=== PATIENT | female | born 1960 | race Caucasian/White ===

== ENCOUNTER 2018-03-03 07:48 | Outpatient (CLI) | payer BC | END 2018-03-03 07:49 | disposition home or self-care (01) | LOC: BICMAMMO 07:48 | PROVIDERS: ATTEND Family Medicine | DX: Z12.31 Encounter for screening mammogram for malignant neoplasm of breast (principal); R92.1 Mammographic calcification found on diagnostic imaging of breast | CPT/HCPCS: 77063; 77067 ==

== ENCOUNTER 2018-08-17 21:28 | Emergency (ER) | payer BC ==
--- NOTE | 2018-08-17 21:47 | RAD ---
PORTABLE CHEST: 08/17/2018 HISTORY: A 58-year-old with a history of chest pain, substernal, for 1-1/2 hours. COMPARISON: 05/20/2017 FINDINGS: AP view chest demonstrates an old healed right mid clavicular fracture. The lungs are well aerated. No evidence of active intrathoracic disease is seen. No evidence of eff usions, pneumonia, or pneumothorax is seen. IMPRESSION: Unremarkable anterior-posterior view chest. POS: [facility]
[2018-08-17] MEDS ORDERED: Ondansetron PF 4 MG/2 ML Vial ONE (21:59)
[2018-08-17 22:09] LABS: #Eosinphils 0.3 thou/uL (0.0-0.7); #Lymphocytes 2.5 thou/uL (1.20-3.40); #Monocytes 0.5 thou/uL (0.11-0.59); #Neutrophils 2.8 thou/uL (1.40-6.50); %Basophils 0.8 % (0.0-1.0); %Eosinophils 5.4 % (0.0-10.0); %Lymphocytes 40.9 % (21.0-51.0); %Monocytes 8.5 % (0.0-10.0); %Neutrophils 44.4 % (42.0-75.0); Hemoglobin 13.8 g/dL (12.0-16.0); Mean Corpuscular HGB CONC 32.3 g/dL (32.0-36.0); Mean Corpuscular Hemoglobin 27.4 pg (27.0-31.0); Mean Corpuscular Volume 84.7 fL (78.0-98.0); Mean Platelet Volume 6.9 fL (7.4-10.4); Platelet Count 273 thou/uL (130-400); RBC Distribution Width 12.9 % (11.5-14.5); Red Blood Cell (RBC) Count 5.03 mill/uL (4.20-5.40); White Blood Cell (WBC) Count 6.2 thou/uL (4.8-10.8)
[2018-08-17 22:31] LABS: ALT (SGPT) 21 U/L (8-55); AST (SGOT) 17 U/L (5-34); Albumin 3.7 g/dL (3.5-5.0); Alkaline Phosphatase 114 U/L (40-150); Anion Gap 12 mmol/L (10-20); BUN (Urea Nitrogen) 18 mg/dL (9.8-20.1); Bilirubin, Total 0.3 mg/dL (0.2-1.2); CK (CPK) 49 U/L (29-168); Calc. Creatinine Clearance 0 mL/min (70-130); Calcium 8.9 mg/dL (7.8-10.44); Carbon Dioxide 23 mmol/L (22-29); Chloride 110 mmol/L (98-107); Estimated GFR-MDRD 82; Glucose 141 mg/dL (70-105); Potassium 3.9 mmol/L (3.5-5.1); Protein, Total 6.7 g/dL (6.0-8.3); Sodium 141 mmol/L (136-145)
[2018-08-17 22:34] LABS: CKMB 1.1 ng/mL (0-6.6); Troponin I Less than 0.010 ng/mL (< 0.028)
[2018-08-17 23:52] LABS: Troponin I Less than 0.010 ng/mL (< 0.028)
== END 2018-08-18 00:37 | disposition home or self-care (01) ==
LOC: ERS 21:28
DX: R07.89 Other chest pain (principal); I10 Essential (primary) hypertension; E78.5 Hyperlipidemia, unspecified; Z79.82 Long term (current) use of aspirin; Z79.899 Other long term (current) drug therapy
CPT/HCPCS: 36415; 71045; 80053; 82550; 82553; 83880; 84484; 85025; 93005; 96374; J2405

== ENCOUNTER 2019-03-06 07:45 | Outpatient (CLI) | payer BC ==
--- NOTE | 2019-03-06 08:35 | MMO ---
Bilateral MAMMO Bilat Screen [facility]. CLINICAL HISTORY: Patient is 58 years old and is seen for screening. The patient has no family history of breast cancer. The patient has no personal history of cancer. VIEWS: The views performed were: bilateral craniocaudal; bilateral craniocaudal with tomosynthesis; and bilateral mediolateral oblique with tomosynthesis. FILMS COMPARED: The present examination has been compared to prior imaging studies performed at [facility] on 12/22/2014, 01/04/2016, 01/10/2017 and 03/03/2018. MAMMOGRAM FINDINGS: There are scattered fibroglandular densities. There are no suspicious masses, suspicious calcifications, or new areas of architectural distortion. IMPRESSION: THERE IS NO MAMMOGRAPHIC EVIDENCE OF MALIGNANCY. A ROUTINE FOLLOW-UP MAMMOGRAM IN 1 YEAR IS RECOMMENDED. THE RESULTS OF THIS EXAM WERE SENT TO THE PATIENT. ACR BI-RADS Category 1 - Negative MAMMOGRAPHY NOTE: 1. A negative mammogram report should not delay a biopsy if a dominant of clinically suspicious mass is present. 2. Approximately 10% to 15% of breast cancers are not detected by mammography. 3. Adenosis and dense breasts may obscure an underlying neoplasm.
== END 2019-03-06 07:46 | disposition home or self-care (01) ==
LOC: BICMAMMO 07:45
PROVIDERS: ATTEND Family Medicine
DX: Z12.31 Encounter for screening mammogram for malignant neoplasm of breast (principal)
CPT/HCPCS: 77063; 77067

== ENCOUNTER 2019-12-01 07:54 | Observation (INO) | payer BC ==
[2019-12-01] MEDS ORDERED: Aspirin Chewable 81 MG TAB ONE (08:36)
[2019-12-01 08:40] LABS: #Basophils 0.1 thou/uL (0.0-0.2); #Eosinphils 0.2 thou/uL (0.0-0.7); #Lymphocytes 3.6 thou/uL (1.20-3.40); #Monocytes 0.5 thou/uL (0.11-0.59); #Neutrophils 4.8 thou/uL (1.40-6.50); %Basophils 0.6 % (0.0-1.0); %Eosinophils 2.7 % (0.0-10.0); %Lymphocytes 39.3 % (21.0-51.0); %Monocytes 5.6 % (0.0-10.0); %Neutrophils 51.8 % (42.0-75.0); Mean Corpuscular HGB CONC 33.4 g/dL (32.0-36.0); Mean Corpuscular Hemoglobin 28.2 pg (27.0-31.0); Mean Corpuscular Volume 84.5 fL (78.0-98.0); Mean Platelet Volume 6.9 fL (7.4-10.4); Platelet Count 348 thou/uL (130-400); RBC Distribution Width 12.7 % (11.5-14.5); White Blood Cell (WBC) Count 9.2 thou/uL (4.8-10.8)
[2019-12-01 08:55] LABS: ALT (SGPT) 19 U/L (8-55); AST (SGOT) 19 U/L (5-34); Albumin 4.1 g/dL (3.5-5.0); Alkaline Phosphatase 135 U/L (40-110); Anion Gap 14 mmol/L (10-20); BUN (Urea Nitrogen) 23 mg/dL (9.8-20.1); Bilirubin, Total 0.4 mg/dL (0.2-1.2); Calc. Creatinine Clearance 0 mL/min (70-130); Calcium 9.5 mg/dL (7.8-10.44); Carbon Dioxide 23 mmol/L (22-29); Chloride 107 mmol/L (98-107); Estimated GFR-MDRD 74; Globulin 3.6 g/dL (2.4-3.5); Glucose 124 mg/dL (70-105); Magnesium 1.8 mg/dL (1.6-2.6); Potassium 3.7 mmol/L (3.5-5.1); Protein, Total 7.7 g/dL (6.0-8.3); Sodium 140 mmol/L (136-145)
[2019-12-01] MEDS ORDERED: Diltiazem 125 MG/25 ML ONE (09:06)
--- NOTE | 2019-12-01 09:45 | RAD ---
CHEST 1 VIEW PORTABLE: Date: 12/01/2019 HISTORY: Chest pain. History of atrial fibrillation. COMPARISON: 08/17/2018. FINDINGS: Heart size is normal. The lungs are clear. Small granuloma calcification right lung. No confluent pne umonia, overt edema, or pleural effusion. IMPRESSION: No acute intrathoracic disease. Stable from prior study. POS: [facility]
[2019-12-01] MEDS ORDERED: Acetaminophen 325 MG TAB PO PRN (12:34)
[2019-12-01] MEDS ORDERED: Calcium Carbonate 500 MG ChewTAB PO PRN (12:34)
[2019-12-01] MEDS ORDERED: Acetaminophen 650 MG Suppository PR PRN (12:34)
[2019-12-01] MEDS ORDERED: Dextrose 5% in Water 1,000 ML IV PRN (12:34)
[2019-12-01] MEDS ORDERED: Senokot S 8.6-50 MG TAB PO PRN (12:34)
[2019-12-01] MEDS ORDERED: Dextrose 50% Abboject 50 ML SYRINGE SLOW IVP PRN (12:34)
[2019-12-01] MEDS ORDERED: Enoxaparin Sodium 80 MG/0.8 ML SYRINGE ONE (12:44)
[2019-12-01] MEDS ORDERED: Enoxaparin Sodium 40 MG/0.4 ML SYRINGE ONE (12:44)
[2019-12-01] MEDS ORDERED: Diltiazem 125 MG in Sodium Chloride 0.9% 100 ML IVPB SCH (12:45)
--- NOTE | 2019-12-01 13:18 | PDOC.HHP ---
Hospitalist HPI - History of Present Illness Chest pain History of Present Illness: PCP: Colton Dave Putty Tinter Maker: Dr. Davenport The patient is a 59/F with PMH significant for long standing Afib (ASA 325mg), HTN, HLD, obesity and pre diabetic (newly diagnosed) presents for above complaint. Reports around 0530 she felt her atrial fibrillation, "kicking in", reports left sided chest pain, describes as soreness, non radiating, with associated SOB and diaphoresis and feeling light headed. When this happens, she usually sits down and it resolves, however this time it did not so she decided to go to the emergency department. Last echocardiogram 07/[address] Davenport office cardiac cath 05/30 - negative She reports taking azithromycin this month for recent URI and bronchitis. Denies any fever, chills, sore throat, N/V/D. ED Course: EKG afib with RVR, rate 110-145 Trop negative CXR negative BP 125/80, HR 145, RR 24, Sp02 97% RA She had single BP 96/68 Given Cardizem drip at 5mg/hr ASA 324mg 1L NS LMWH 1mg/kg Hospitalist ROS - Review of Systems Constitutional: denies: fever, chills, sweats, weakness, malaise, other ENT: denies: ear pain, ear discharge, nose pain, nose discharge, nose congestion , mouth pain, mouth swelling, throat pain, throat swelling, other Respiratory: reports: shortness of breath. denies: cough, hemoptysis Cardiovascular: reports: chest pain, palpitations (diaphoresis and light headedness). denies: orthopnea, paroxysmal noc. dyspnea, edema Gastrointestinal: denies: nausea, vomiting, abdominal pain, diarrhea Genitourinary: denies: dysuria, frequency, hematuria Skin: denies: rash, bruising Neurological: denies: weakness, numbness, incoordination, change in speech, confusion Hospitalist History - Past Medical History Source: patient Cardiac: reports: AFIB (long standing), HTN, Hyperlipidemia Pulmonary: reports: no pertinent history MATERIAL ASSISTANT: reports: no pertinent history Gastrointestinal: reports: no pertinent history Heme/Onc: reports: no pertinent history Hepatobiliary: reports: no pertinent history Psych: reports: no pertinent history Musculoskeletal: reports: no pertinent history Rheumatologic: reports: no pertinent history Renal/: reports: no pertinent history Endocrine: reports: Other (Pre diabetic on Trulicity) Dermatology: reports: no pertinent history - Past Surgical History Past Surgical History: reports: no pertinent history - Family History Family History: reports: cardiac disorder, Other (asthma) - Social History Smoking Status: Never smoker Alcohol: reports: Rare Drugs: reports: none Living Situation: With Family Occupation: lives in [place] with spouse, works at [employer] Activity level: independent ambulation - Exam General Appearance: NAD, awake alert Neck: supple, no JVD, no thyromegaly, no lymphadenopathy Heart: no gallops, no rubs, normal peripheral pulses, irregular Respiratory: CTAB, no wheezes, no rales, no ronchi Gastrointestinal: soft, non-tender, non-distended, normal bowel sounds, no guarding, no rigidity Extremities: no cyanosis, no clubbing, no edema Skin: no lesions, no rashes Neurological: no focal deficits Musculoskeletal: normal tone, normal strength Psychiatric: normal affect, A&O x 3 Hospitalist Results - Labs Result Diagrams: 12/01/19 08:16 12/01/19 08:16 Lab results: WBC 9.2 thou/uL (4.8-10.8) 12/01/19 08:16 Hgb 15.0 g/dL (12.0-16.0) 12/01/19 08:16 Hct 44.8 % (36.0-47.0) 12/01/19 08:16 MCV 84.5 fL (78.0-98.0) 12/01/19 08:16 Plt Count 348 thou/uL (130-400) 12/01/19 08:16 Neutrophils % 51.8 % (42.0-75.0) 12/01/19 08:16 Sodium 140 mmol/L (136-145) 12/01/19 08:16 Potassium 3.7 mmol/L (3.5-5.1) 12/01/19 08:16 Chloride 107 mmol/L (98-107) 12/01/19 08:16 Carbon Dioxide 23 mmol/L (22-29) 12/01/19 08:16 BUN 23 mg/dL (9.8-20.1) H 12/01/19 08:16 Creatinine 0.80 mg/dL (0.6-1.1) 12/01/19 08:16 Glucose 124 mg/dL (70-105) H 12/01/19 08:16 Calcium 9.5 mg/dL (7.8-10.44) 12/01/19 08:16 Total Bilirubin 0.4 mg/dL (0.2-1.2) 12/01/19 08:16 AST 19 U/L (5-34) 12/01/19 08:16 ALT 19 U/L (8-55) 12/01/19 08:16 Alkaline Phosphatase 135 U/L (40-110) H 12/01/19 08:16 Troponin I Less than 0.010 ng/mL (< 0.028) 12/01/19 08:16 Serum Total Protein 7.7 g/dL (6.0-8.3) 12/01/19 08:16 Albumin 4.1 g/dL (3.5-5.0) 12/01/19 08:16 Laboratory Tests 12/01/19 08:16 Troponin I Less than 0.010 - EKG Interpretation EKG: Afib with RVR 110-145 - Radiology Interpretation Chest x-ray Status: report reviewed by me Hospitalist H&P A/P - Plan Plan: At assessment, patient rate controlled HR 80s on cardizem drip at 5mg/hr, denies any CP, SOB Impression: Chest pain, rule out ACS Afib RVR HTN HLD Prediabetic Obesity Plan: Cardiac monitoring Trend troponins Continue Cardizem drip LMWH 1mg/kg BID ASA daily Cardiology Consulted Check TSH, lipase and PT/INR Restart home meds Accuchecks AC/HS and Mild sliding scale CMP and CBC in AM Full Code DPOA [facility], .
[2019-12-01] MEDS ORDERED: HumaLOG 300 UNITS/3 ML VIAL SC PRN (13:26)
[2019-12-01 13:30] LABS: Troponin I Less than 0.010 ng/mL (< 0.028)
[2019-12-01 13:44] LABS: INR-International Normal Ratio 0.9; PTT 24.7 SEC (22.9-36.1); Prothrombin Time 12.6 SEC (12.0-14.7)
[2019-12-01 15:34] VITALS: BMI 38.2
[2019-12-01 15:35] LABS: Troponin I Less than 0.010 ng/mL (< 0.028)
[2019-12-01] MEDS: Flecainide 50 MG TAB PO SCH (19:35)
[2019-12-01] MEDS: Enoxaparin Sodium 120 MG/0.8 ML SYRINGE SC SCH (19:36)
[2019-12-01] MEDS ORDERED: Atorvastatin Calcium 10 MG TAB PO SCH (21:00)
--- NOTE | 2019-12-01 23:09 | CON ---
DATE OF CONSULTATION: 12/01/2019 INDICATION FOR CONSULTATION: A 59-year-old female with history of intermittent or paroxysmal atrial fibrillation, who presented again this morning around 8 o'clock to the emergency room after she knows she was having some tachycardia and was irregular and she also had some chest tenderness and she presented to the emergency room with her atrial fibrillation. She was found to be in atrial fibrillation, heart rates in the 114. With atrial fibrillation, she was placed on IV diltiazem and converted back to normal sinus rhythm. Normally, she takes flecainide 75 mg twice a day. She has had a history of paroxysmal atrial fibrillation for several years now, has been followed by Dr. Davenport of about a year ago. She was increased to 50 mg twice a day to 75 mg twice a day, has been doing relatively well with that. She did have one episode about 2 or 3 months ago, where she had an episode of atrial fibrillation. She did not present to the emergency room at that time. It lasted for several hours in the morning and then it resolved. She has had no significant episodes since that time until today when she again had some episodes. She did state that on Saturday, she did miss two doses of her flecainide, but then started back on Saturday and has not missed any doses since that time. It will be unlikely that this is due to missing the medication that she went back in atrial fibrillation. She has upcoming bariatric surgery, which actually may decrease the risk of her going back into atrial fibrillation. It will also help perhaps with her hypercholesterolemia and hypertension. This has not yet been scheduled, but she is anticipating to undergo this procedure within the next few months. Apparently, she still continues to have some mild left anterior chest wall tenderness to palpation, but otherwise is not tender if she is not pushing or feeling the area. She has had no further atrial fibrillation since converting back to her sinus rhythm. PAST MEDICAL HISTORY: Significant for hypertension, atrial fibrillation. She has had ankle surgery and . She has had history of hypercholesterolemia. She has had hysterectomy. She did undergo cardiac catheterization in May of 2017, which showed normal coronary arteries. She has normal left ventricular systolic function. Her last echocardiogram was in 2017. We will repeat an echocardiogram for completeness. ALLERGIES: NONE. MEDICATIONS: Prior to admission included: 1. Metoprolol 50 mg once a day. 2. Atorvastatin 10 mg once a day. 3. Aspirin 325 mg a day. 4. Flecainide 75 mg twice a day. ALLERGIES: NONE. REVIEW OF SYSTEMS: A 12-point review of systems is unremarkable except for what was noted in the history of present illness. She is looking forward to the upcoming bariatric surgery. PHYSICAL EXAMINATION: GENERAL: Reveals well-developed, well-nourished, overweight female. VITAL SIGNS: Her blood pressure is 111/62. She is afebrile. Heart rate is in the 70s, sinus rhythm, respiratory rate 16, O2 saturation 96%. HEENT: Shows the head to be normocephalic and atraumatic. Carotid pulses are present. There were no bruits noted. CHEST: Clear to auscultation without rales, rhonchi, or wheezing. CARDIOVASCULAR: Reveals regular rate and rhythm at this time, normal S1, S2. There is no S3 or S4. There were no significant murmurs, heaves, thrills, bruits, or rubs noted. ABDOMEN: Shows obesity. Positive bowel sounds are present. EXTREMITIES: Shows no clubbing, cyanosis, or edema. Pedal pulses are present. Radial pulses are present. NEUROLOGIC: She appears to be fully intact. SKIN: Warm and dry. LABORATORY DATA: Shows hemoglobin 15, hematocrit 48.8, WBC of 9.2, platelet count was 348,000. Her sodium was 140, BUN was 22, creatinine 0.8, blood sugar was 124. Her troponin is negative as noted. TSH was also normal at 1.7. EKG at this time shows normal sinus rhythm with no acute changes. She has converted back to sinus rhythm. IMPRESSION: 1. Paroxysmal atrial fibrillation. We will continue on the flecainide. She may need to increase the dose of flecainide. This will be dealt with by Dr. Davenport when he visits with the patient tomorrow. There has been some discussion in the past about ablation of the patient, but she is not willing to undergo that. She also has refused to have oral anticoagulation in the past. We will continue her flecainide at this time, as well as will most likely discontinue the IV diltiazem. 2. Mitral valve regurgitation. We will repeat the echocardiogram for evaluation of severity of the mitral valve regurgitation. 3. Hypertension. She is very stable at this time on the present medications. 4. Obesity. Again, she is looking forward to undergo bariatric surgery. 5. Chest pressure. This appears to be chest wall in nature, tender to palpation, but otherwise no tenderness. EKG did not show any ischemia and enzymes are negative without some palpation of the area, she denies any significant discomfort. Job ID: [id number]
[2019-12-02 05:27] LABS: #Eosinphils 0.3 thou/uL (0.0-0.7); #Lymphocytes 3.2 thou/uL (1.20-3.40); #Monocytes 0.5 thou/uL (0.11-0.59); #Neutrophils 3.7 thou/uL (1.40-6.50); %Basophils 0.4 % (0.0-1.0); %Eosinophils 3.5 % (0.0-10.0); %Lymphocytes 41.4 % (21.0-51.0); %Monocytes 6.7 % (0.0-10.0); %Neutrophils 47.9 % (42.0-75.0); Hemoglobin 12.8 g/dL (12.0-16.0); Mean Corpuscular HGB CONC 32.4 g/dL (32.0-36.0); Mean Corpuscular Hemoglobin 27.7 pg (27.0-31.0); Mean Corpuscular Volume 85.5 fL (78.0-98.0); Platelet Count 260 thou/uL (130-400); Red Blood Cell (RBC) Count 4.64 mill/uL (4.20-5.40); White Blood Cell (WBC) Count 7.7 thou/uL (4.8-10.8)
[2019-12-02 05:36] LABS: ALT (SGPT) 15 U/L (8-55); AST (SGOT) 14 U/L (5-34); Albumin 3.6 g/dL (3.5-5.0); Alkaline Phosphatase 113 U/L (40-110); Anion Gap 10 mmol/L (10-20); BUN (Urea Nitrogen) 25 mg/dL (9.8-20.1); Bilirubin, Total 0.4 mg/dL (0.2-1.2); Calc. Creatinine Clearance 144 mL/min (70-130); Calcium 8.7 mg/dL (7.8-10.44); Carbon Dioxide 27 mmol/L (22-29); Chloride 108 mmol/L (98-107); Estimated GFR-MDRD 75; Globulin 2.9 g/dL (2.4-3.5); Glucose 99 mg/dL (70-105); Potassium 3.8 mmol/L (3.5-5.1); Protein, Total 6.5 g/dL (6.0-8.3); Sodium 141 mmol/L (136-145)
[2019-12-02 07:55] VITALS: TEMP 97.9
[2019-12-02] MEDS: Flecainide 50 MG TAB PO SCH (08:07)
[2019-12-02] MEDS: Enoxaparin Sodium 120 MG/0.8 ML SYRINGE SC SCH (08:08)
[2019-12-02] MEDS ORDERED: Magnesium Sulfate 2 GM in Sodium Chloride 0.9% 100 ML IVPB SCH (08:15)
[2019-12-02] MEDS ORDERED: Magnesium 2 GM/50 ML 2 GM in Premix Bag 1 BAG IVPB SCH (08:15)
[2019-12-02] MEDS ORDERED: Aspirin 325 MG TAB PO SCH (09:00)
[2019-12-02] MEDS ORDERED: Flecainide 50 MG TAB PO SCH (09:00)
[2019-12-02 09:45] VITALS: BP 140/90
--- NOTE | 2019-12-02 12:06 | DIS ---
DATE OF ADMISSION: 12/01/2019 DATE OF DISCHARGE: 12/02/2019 DISCHARGE DISPOSITION AND FOLLOWUP: The patient is going to be discharged home. Follow up with Cardiology in 1 week for cardiac stress test. The patient was seen and examined on the day of discharge. Denies any new complaints. INPATIENT CONSULTATIONS: Cardiology, Dr. Hoffmann and Dr. Davenport. BRIEF CLINICAL COURSE: The patient is a 59-year-old female with a past medical history significant for longstanding atrial fibrillation, on aspirin and flecainide, hypertension, hyperlipidemia, obesity, and she is a prediabetic, newly diagnosed. She came in to the ER for chest pain. In the ER, an EKG was performed and found the patient to have atrial fibrillation with RVR, rate between 110 and 145. Troponins were negative. Chest x-ray was negative. The patient was placed on a Cardizem drip, given a full aspirin and anticoagulated with Lovenox 1 mcg/kg, and sent to the tele observation unit. While on the Cardizem drip, the patient did convert to sinus rhythm and the drip was stopped. Cardiology recommended increasing flecainide from 75 mg b.i.d. to 100 mg b.i.d. and follow up in 1 week for a cardiac stress test. FINAL DIAGNOSES: 1. Paroxysmal atrial fibrillation. Continue flecainide increased dose from 75 mg b.i.d. to 100 mg b.i.d. 2. Hypertension, chronic, stable. 3. Obesity, body mass index of 38. 4. Chest pressure, most likely chest wall pressure. EKG negative for ischemic and cardiac enzymes negative. DISCHARGE MEDICATIONS: 1. Flecainide 100 mg p.o. b.i.d. 2. Magnesium chloride (Slow-Mag) 64 mg p.o. b.i.d. 3. Aspirin 325 mg orally daily. 4. Lipitor 10 mg p.o. at bedtime. 5. Metoprolol succinate 50 mg p.o. daily. 6. Trulicity 1 injection subcutaneous q. week. DISCHARGE INSTRUCTIONS: Follow up with Cardiology in 1 week for a cardiac stress test. Job ID: [id number] MTDD
--- NOTE | 2019-12-02 22:49 | PDOC.EVN ---
Event Note - Event Note Event Note: Patient seen and examined for Afib. CP resolved. in SR. Vitals reviewed Flecainide dose increase. CTA B/L, S1S2 + Labs reviewed I agree with the note by RAMÓN Penny
--- NOTE | 2019-12-03 09:25 | DIS ---
DATE OF ADMISSION: 12/01/2019 DATE OF DISCHARGE: 12/02/2019 DISCHARGE DISPOSITION: Home. FOLLOWUP: 1. Follow up with primary care physician, Dr. Arturo Alexander in 1 week. 2. Follow up with Cardiology, Dr. López Davenport. ALLERGIES: NO KNOWN DRUG ALLERGIES. DISCHARGE MEDICATIONS: 1. Flecainide 100 mg b.i.d. (dose increased). 2. All other home medications were left unchanged. The patient was seen and examined on the day of discharge. Denies any new complaints. No chest pain, shortness of breath, or palpitations reported. BRIEF HOSPITAL COURSE: The patient is a 59-year-old female with paroxysmal atrial fibrillation, on aspirin and 75 mg flecainide twice a day, presented to the emergency room with chest discomfort. Workup was consistent with atrial fibrillation with rapid ventricular rate, requiring Cardizem drip. She was started on Lovenox that was later discontinued per the patient's request. The patient converted to sinus rhythm. Cardiology recommended increasing flecainide to 100 mg b.i.d. Please note that the patient had missed one or two doses of flecainide. The patient has been cleared by Cardiology for discharge. FINAL DIAGNOSES: 1. Atrial fibrillation with rapid ventricular response, converted to sinus rhythm. 2. Hypertension. 3. Obesity with a BMI of 38. 4. Chest discomfort, acute coronary syndrome ruled out. Job ID: [id number] MTDD
== END 2019-12-02 11:52 | disposition home or self-care (01) ==
LOC: ERS 07:54 → INTOOBSV 10:59 → ERHOLD 10:59 → 2SW 15:13
PROVIDERS: ADMIT Internal Medicine; ATTEND Internal Medicine
DX: I48.0 Paroxysmal atrial fibrillation (principal); R07.89 Other chest pain; I10 Essential (primary) hypertension; E78.5 Hyperlipidemia, unspecified; R73.03 Prediabetes; I34.0 Nonrheumatic mitral (valve) insufficiency; E66.9 Obesity, unspecified; Z68.38 Body mass index [BMI] 38.0-38.9, adult; Z79.84 Long term (current) use of oral hypoglycemic drugs; Z79.82 Long term (current) use of aspirin; Z79.899 Other long term (current) drug therapy
CPT/HCPCS: 36415; 36416; 71045; 80053; 83690; 83735; 84443; 84484; 85025; 85610; 85730; 93005; 96365; 96366; 96372; G0378; J1650

== ENCOUNTER 2019-12-06 10:50 | Observation (INO) | payer BC ==
[2019-12-06 11:08] LABS: #Eosinphils 0.3 thou/uL (0.0-0.7); #Lymphocytes 3.2 thou/uL (1.20-3.40); #Monocytes 0.5 thou/uL (0.11-0.59); #Neutrophils 4.1 thou/uL (1.40-6.50); %Basophils 0.5 % (0.0-1.0); %Eosinophils 3.2 % (0.0-10.0); %Lymphocytes 39.3 % (21.0-51.0); %Neutrophils 50.9 % (42.0-75.0); Hemoglobin 14.2 g/dL (12.0-16.0); Mean Corpuscular HGB CONC 33.7 g/dL (32.0-36.0); Mean Corpuscular Hemoglobin 28.5 pg (27.0-31.0); Mean Corpuscular Volume 84.6 fL (78.0-98.0); Mean Platelet Volume 7.1 fL (7.4-10.4); Platelet Count 296 thou/uL (130-400); RBC Distribution Width 13.2 % (11.5-14.5); Red Blood Cell (RBC) Count 4.97 mill/uL (4.20-5.40)
--- NOTE | 2019-12-06 11:19 | RAD ---
EXAM: CHEST ONE VIEW HISTORY: Chest pain COMPARISON: 12/01/2019 FINDINGS: The cardiac silhouette and pulmonary vasculature are within normal limits. Most inferior aspect of ea ch lateral costophrenic angle is excluded from view, but the lungs are otherwise clear aside from calcified granuloma in the right midlung zone. There has been no interval change from prior study. IMPRESSION: No acute cardiopulmonary process.
[2019-12-06 11:30] LABS: ALT (SGPT) 53 U/L (8-55); AST (SGOT) 32 U/L (5-34); Albumin 3.9 g/dL (3.5-5.0); Alkaline Phosphatase 132 U/L (40-110); Anion Gap 13 mmol/L (10-20); BUN (Urea Nitrogen) 18 mg/dL (9.8-20.1); Bilirubin, Total 0.4 mg/dL (0.2-1.2); CK (CPK) 58 U/L (29-168); Calc. Creatinine Clearance 0 mL/min (70-130); Carbon Dioxide 24 mmol/L (22-29); Chloride 108 mmol/L (98-107); Estimated GFR-MDRD 79; Globulin 3.2 g/dL (2.4-3.5); Glucose 117 mg/dL (70-105); Potassium 4.1 mmol/L (3.5-5.1); Protein, Total 7.1 g/dL (6.0-8.3); Sodium 141 mmol/L (136-145)
[2019-12-06] MEDS ORDERED: Acetaminophen 500 MG TAB ONE (11:37)
[2019-12-06] MEDS ORDERED: Metoprolol Tartrate 5 MG/5 ML VIAL ONE (13:02)
[2019-12-06 16:11] VITALS: BMI 37.3
[2019-12-06] MEDS: Flecainide 50 MG TAB PO SCH (20:50)
[2019-12-06] MEDS: Enoxaparin Sodium 120 MG/0.8 ML SYRINGE SC SCH (20:51)
[2019-12-06] MEDS ORDERED: Atorvastatin Calcium 10 MG TAB PO SCH (21:00)
[2019-12-06] MEDS ORDERED: Acetaminophen 325 MG TAB PO PRN (21:09)
--- NOTE | 2019-12-06 21:42 | HP ---
CHIEF COMPLAINT: Chest pain and palpitations. HISTORY OF PRESENT ILLNESS: The patient is a 59-year-old female, with past medical history of atrial fibrillation, obesity, and hyperlipidemia, who presents to the hospital with complaints of palpitation and chest pain. The patient recently was discharged from the hospital a few days ago. At this time, she was found to be in atrial fibrillation, and her flecainide was increased from 75 mg twice a day to 100 mg twice a day. She refused an ablation at that time. The patient now presents again with the same symptoms. She states that she woke up this morning around 6 o'clock. She felt well. However, at 0830 hours, she started having chest tightness and felt palpitations, so she came into the ER. She is currently in atrial fibrillation. PAST MEDICAL HISTORY: She has a history of hypertension, atrial fibrillation, and obesity. PAST SURGICAL HISTORY: She has had a hysterectomy, , and metal plate to her left ankle. SOCIAL HISTORY: She does not smoke, drink drug use. She is a full code. ALLERGIES: NO KNOWN DRUG ALLERGIES. HOME MEDICATIONS: This is per her last discharge summary. 1. She is on flecainide 100 mg twice a day. 2. She is on Trulicity one subcu every seven days. 3. Aspirin 325 daily. 4. Atorvastatin 10 mg at bedtime. 5. Magnesium 64 mg twice a day. 6. Toprol-XL 50 mg p.o. daily. REVIEW OF SYSTEMS: As I mentioned, all negative except for the ones mentioned above in the HPI. PHYSICAL EXAMINATION: VITAL SIGNS: Are as of the following; temperature of 98.8, heart rate of 100, blood pressure of 119/60, and she is 98% on room air. GENERAL: She is awake, alert, and oriented x3. Does not appear in distress. CV: S1, S2 present. No murmurs, rubs, or gallops. Irregularly irregular. LUNGS: Clear to auscultation. No rhonchi or wheezes noted. ABDOMEN: Soft and nontender. Bowel sounds are present x2. EXTREMITIES: No edema. Pedal pulses are present x2. NEUROVASCULAR: Neurovascular darling, no focal deficits noted. SKIN: No cuts, lesions, or bruises noted. IMAGING DATA: She had a chest x-ray done on 12/06, which indicated no acute pulmonary processes. LABORATORY DATA: Her laboratory results were as of the following; WBCs of 8.0, hemoglobin of 14.2, and hematocrit of 42.1. Chemistry; sodium of 141, potassium of 4.1, BUN of 18, and creatinine of 0.75. Her alkaline phosphatase was mildly elevated. Her troponin x2 were negative. EKG indicated atrial fibrillation. In the ER, she received 5 mg of IV Lopressor. ASSESSMENT AND PLAN: The patient is a 59-year-old female, who presents to the hospital with complaints of chest tightness. 1. Atrial fibrillation, new onset. She is now back into atrial fibrillation, which had been controlled with flecainide. The patient will most likely need an ablation. She had an echocardiogram done recently. We will keep her n.p.o. after midnight. Cardiology has been consulted. Her chemistry technician is Dr. Davenport. I will start her on Lovenox 1 mg/kg twice a day. I will continue her home medications. 2. Obesity. She is going to have surgery sometimes later on this year. 3. Deep venous thrombosis prophylaxis. The patient is already on Lovenox. Job ID: [id number]
[2019-12-06] MEDS: Magnesium Chloride 64 MG TAB PO SCH (22:59)
--- NOTE | 2019-12-06 23:55 | CON ---
DATE OF CONSULTATION: 12/06/2019 REASON FOR CONSULTATION: Recurrent atrial fibrillation. PRIMARY QUILT SEWER: López Davenport MD HISTORY OF PRESENT ILLNESS: Ms. Cruz is a very pleasant 59-year-old woman with atrial fibrillation. She was just recently in the hospital. She went home on flecainide and metoprolol, woke up this morning with fullness in her chest and palpitations. She came here to the emergency room, where she is found to be in atrial fibrillation with a rapid rate. The patient otherwise does not feel well when she goes back into fibrillation. MEDICATIONS: At home, please see nurse's notes include flecainide and metoprolol as well as aspirin. She is on Lovenox here. REVIEW OF SYSTEMS: CONSTITUTIONAL: No significant weight gain or loss. VISION: No changes. HEARING: No changes. PULMONARY: No cough or wheezing. PHYSICAL EXAMINATION: GENERAL: This is a pleasant 59-year-old woman. She is 5 feet 9 inches tall, 253 pounds. HEENT: Eyes; sclerae nonicteric. Mouth, mucous membranes moist. NECK: Supple. No lymphadenopathy. LUNGS: Clear. CARDIAC: Irregularly irregular. ABDOMEN: Obese and nontender. EXTREMITIES: No clubbing or cyanosis. There is no edema. SKIN: Warm and dry. PERTINENT LABORATORY DATA: Troponins are all negative. Pertinent information, the patient had a normal cardiac catheterization done in May 2017. ASSESSMENT: Recurrent atrial fibrillation with a rapid rate. PLAN: 1. Increase beta blockers. 2. Continue flecainide. 3. Consideration for referral for possible ablation. Dr. Davenport to resume care tomorrow. Job ID: [id number]
[2019-12-07] MEDS ORDERED: Aspirin 325 MG TAB PO SCH ×2 (09:00→11:15)
[2019-12-07] MEDS: Magnesium Chloride 64 MG TAB PO SCH (09:01)
[2019-12-07] MEDS: Flecainide 50 MG TAB PO SCH (09:01)
[2019-12-07] MEDS: Enoxaparin Sodium 120 MG/0.8 ML SYRINGE SC SCH (11:31)
[2019-12-07 16:04] VITALS: BP 132/96; TEMP 98
--- NOTE | 2019-12-07 16:31 | EKG ---
Test Reason : Blood Pressure : / mmHG Vent. Rate : 075 BPM Atrial Rate : 075 BPM P-R Int : 200 ms QRS Dur : 098 ms QT Int : 422 ms P-R-T Axes : 057 -04 041 degrees QTc Int : 471 ms Normal sinus rhythm Normal ECG When compared with ECG of 06-DEC-2019 10:57, (Unconfirmed) Sinus rhythm has replaced Atrial fibrillation Vent. rate has decreased BY [address] Suleiman LAURENT ([id number]) on 12/07/2019 4:30:31 PM Referred By: JP Confirmed By:DR. Suleiman LAURENT
--- NOTE | 2019-12-08 02:22 | DIS ---
DATE OF ADMISSION: 12/06/2019 DATE OF DISCHARGE: 12/07/2019 PRIMARY CARE PROVIDER: Arturo Alexander MD DISCHARGE DIAGNOSIS: Atrial fibrillation, recurrent. CONDITION OF PATIENT ON THE DAY OF DISCHARGE: Stable. I assessed Ms. Cruz on the day of discharge. She denies any chest pain or shortness of breath. Vital signs are stable. S1 and S2 are heard, regular. Lungs are clear to auscultation bilaterally. CONSULTATIONS DURING THIS HOSPITALIZATION: Cardiology, Dr. Horne and Electrophysiology, Dr. Shi. HOSPITAL COURSE: Ms. Cruz is a pleasant 59-year-old lady, who was admitted to [facility] on December 06, 2019, for recurrent atrial fibrillation. Please refer to Dr. Barry's history and physical note dated December 06, 2019, for further details. She was seen by Cardiology Service. Her metoprolol dose was increased to 50 mg 2 times a day. She has also been started on Eliquis 5 mg 2 times a day. Otherwise, no change was made to her pre-admission home medications, which include Trulicity 0.75 mg every week, Krill/Yoakum-3 one capsule daily, vitamin B12 of 1000 mcg daily, flecainide 100 mg 2 times a day, aspirin 325 mg daily, and Lipitor 10 mg at bedtime. Please note that the patient converted to normal sinus rhythm following admission and continues to be in sinus rhythm at the time of discharge. POST-ACUTE CARE FOLLOWUP: With primary care provider in 3 days, with Dr. Davenport in 2 to 3 weeks, and with Dr. Shi in 2 weeks. DIET: Heart healthy and diabetic. ACTIVITY: No restrictions. DISCHARGE DESTINATION: Home. Job ID: [id number]
--- NOTE | 2019-12-08 08:16 | CON ---
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 Her problems are: 1. Paroxysmal atrial fibrillation with suboptimal suppression of atrial fibrillation with flecainide. 2. History of preserved LVEF 50% to 55%, mild MR on echo in May 2017. 3. Elevated BMI. 4. Hypertension. ALLERGIES: NONE NOTED. MEDICATIONS: Include: 1. Flecainide 100 mg twice a day. 2. Trulicity subcu every 7 days. 3. Aspirin. 4. Atorvastatin. 5. Magnesium. 6. Toprol-XL 50 mg daily. SUBJECTIVE: Ms. Cruz was admitted with palpitations and atrial fibrillation. She was actually just discharged a couple of days back on the after recurrent atrial fibrillation episode. She was started on flecainide 100 mg twice a day on the . Since then, another recurrent episode occurred and hence her current admission. She felt some chest tightness and palpitations associated with the event. Now, she is back in sinus rhythm. She is feeling good. Denies any further issues. No history of strokes. No bleeding issues. No fever, chills, or cough. Rest of 12-point systems otherwise unremarkable. PAST MEDICAL HISTORY: As above. SOCIAL HISTORY: The patient denies smoking, EtOH, or drug abuse. PAST SURGICAL HISTORY: Significant for hysterectomy, , metal plate in her left ankle. FAMILY HISTORY: Noncontributory. OBJECTIVE DATA: VITAL SIGNS: Blood pressure is 132/96, heart rate 75, respiratory rate 17, and temperature 98 degrees Fahrenheit. GENERAL: Alert and oriented, obese woman, in no apparent distress. NECK: Supple. Jugular veins difficult to visualize, but does not appear distended. CHEST: Coarse with crackles. HEART: Sounds are regular to rate and rhythm. No murmur or gallop. Rub is appreciated. PMI is difficult to palpate. ABDOMEN: Benign bowel sounds positive. Hepatosplenomegaly is not detected. EXTREMITIES: Lower extremities without edema, clubbing, or cyanosis. Pulses are adequate. NEUROLOGIC: The patient is nonfocal. MUSCULOSKELETAL: Without joint swelling or deformity. SKIN: Without rash. DATABASE: EKG is reviewed, reveals initial atrial fibrillation, later sinus rhythm. Narrow QRS is seen. Short nonsustained wide-complex rhythm is seen about four beats. LABORATORY DATA: White cell count is 8, hemoglobin 14.2, platelet count is 296. Sodium 141, potassium 4.1, BUN is 18, and creatinine 0.875. ASSESSMENT AND PLAN: Ms. Cruz is a 59-year-old woman with history of recurrent atrial fibrillation, recently started on flecainide. She has prior evaluation with negative echo and cath lab radiological technologist results. She is now with recurrent episodes of atrial fibrillation, highly symptomatic. I discussed the mechanism and treatment options for atrial fibrillation with her. At this point, it is reasonable to continue flecainide which has just recently initiated likely still in the loading phase. 100 mg twice a day dose is reasonable for now. Hold off from increasing dose further. On the other hand, she could benefit from increasing beta-jace therapy to reduce the ventricular rate in case of recurrence. On the other hand, we also discussed option for invasive intervention like pulmonary venous isolation procedure. She has not been anticoagulated sufficiently in the past, therefore, apixaban will be initiated. I will make arrangements to see her back in the office and plan for ablation procedure in about four weeks from now after adequate anticoagulation achieved. Thank you again for letting me to participate in the care of this patient. Job ID: [id number]
[2019-12-08] MEDS ORDERED: Apixaban 5 MG TAB PO SCH (09:00)
[2019-12-08] MEDS ORDERED: Aspirin 325 MG TAB PO SCH (09:00)
== END 2019-12-07 18:24 | disposition home or self-care (01) ==
LOC: ERS 10:50 → ERHOLD 13:10 → 2NO 15:09
PROVIDERS: ADMIT Internal Medicine; ATTEND Internal Medicine
DX: I48.0 Paroxysmal atrial fibrillation (principal); I10 Essential (primary) hypertension; E66.9 Obesity, unspecified; Z68.37 Body mass index [BMI] 37.0-37.9, adult; Z79.82 Long term (current) use of aspirin; Z79.84 Long term (current) use of oral hypoglycemic drugs; Z79.899 Other long term (current) drug therapy
CPT/HCPCS: 36415; 71045; 80053; 82550; 84484; 85025; 93005; 93010; 94760; 96372; 96374; G0378; J1650

== ENCOUNTER 2020-01-21 08:55 | Observation (INO) | payer BC ==
--- NOTE | 2020-01-21 09:16 | CT ---
CT HEAD WITHOUT IV CONTRAST COMPARISON: None HISTORY: Level 1 stroke alert. Slurred speech this morning. Headache and facial droop. History has now resolv ed. TECHNIQUE: Axial CT imaging at 5 mm intervals from vertex through skull base without contrast FINDINGS: Scattered minimal low-density areas are seen in the periventricular white matter which are nonspecifi c but likely reflective of mild chronic small vessel ischemic changes. There is no evidence of an acute infarction, hemorrhage, mass effect, or midline shift. The ventricular system is normal in size , shape, and position. Visualized paranasal sinuses are clear. Osseous structures appear intact. IMPRESSION: 1. No acute intracranial abnormality demonstrated. 2. Above findings discussed Dr. Shipley in the emergency department on 01/21/2020 at 0912 hours.
[2020-01-21 09:22] LABS: #Basophils 0.1 thou/uL (0.0-0.2); #Eosinphils 0.2 thou/uL (0.0-0.7); #Lymphocytes 3.5 thou/uL (1.20-3.40); #Monocytes 0.5 thou/uL (0.11-0.59); #Neutrophils 4.4 thou/uL (1.40-6.50); %Basophils 0.7 % (0.0-1.0); %Lymphocytes 40.2 % (21.0-51.0); %Monocytes 5.6 % (0.0-10.0); %Neutrophils 51.6 % (42.0-75.0); Hemoglobin 14.2 g/dL (12.0-16.0); Mean Corpuscular HGB CONC 32.9 g/dL (32.0-36.0); Mean Corpuscular Hemoglobin 27.9 pg (27.0-31.0); Mean Corpuscular Volume 84.7 fL (78.0-98.0); Mean Platelet Volume 6.7 fL (7.4-10.4); Platelet Count 304 thou/uL (130-400); RBC Distribution Width 12.9 % (11.5-14.5); Red Blood Cell (RBC) Count 5.11 mill/uL (4.20-5.40); White Blood Cell (WBC) Count 8.6 thou/uL (4.8-10.8)
[2020-01-21 09:31] LABS: INR-International Normal Ratio 1.1; PTT 26.3 SEC (22.9-36.1); Prothrombin Time 14.4 SEC (12.0-14.7)
--- NOTE | 2020-01-21 09:34 | RAD ---
EXAM: CHEST ONE VIEW HISTORY: Altered mental status. Facial droop and slurred speech with onset of symptoms at 0700 hours. COMPARISON: 12/06/2019 FINDINGS: The cardiac silhouette and pulmonary vasculature is within normal limits. The lungs are clear. The os seous structures are intact. Chest is stable compared to prior study. IMPRESSION: No acute cardiopulmonary process.
[2020-01-21 09:39] LABS: ALT (SGPT) 16 U/L (8-55); AST (SGOT) 16 U/L (5-34); Albumin 4.3 g/dL (3.5-5.0); Alkaline Phosphatase 106 U/L (40-110); Anion Gap 12 mmol/L (10-20); BUN (Urea Nitrogen) 20 mg/dL (9.8-20.1); Bilirubin, Total 0.6 mg/dL (0.2-1.2); CK (CPK) 42 U/L (29-168); Calc. Creatinine Clearance 0 mL/min (70-130); Calcium 9.6 mg/dL (7.8-10.44); Carbon Dioxide 28 mmol/L (22-29); Chloride 103 mmol/L (98-107); Estimated GFR-MDRD 76; Globulin 3.2 g/dL (2.4-3.5); Glucose 99 mg/dL (70-105); Magnesium 1.8 mg/dL (1.6-2.6); Potassium 4.1 mmol/L (3.5-5.1); Protein, Total 7.5 g/dL (6.0-8.3); Sodium 139 mmol/L (136-145)
--- NOTE | 2020-01-21 09:58 | CT ---
CTA HEAD WITH CONTRAST: Date: 01/21/2020 Axial tomograms obtained with IV enhancement following a cerebral angio protocol with multiplanar rec onstruction and 3D postprocessing. INDICATION: Stroke alert. Slurred speech. Symptoms have resolved. FINDINGS: The intracranial internal carotid arteries are patent and symmetric. The right A1 segment is absent. Anterior communicator, however, is patent and the A2 segments are patent and symmetric bilaterally. Both middle cerebral arteries are patent and symmetric. No stenosis or occlusion seen in either M1 se gment. The M2 and M3 branches appear symmetric. Basilar artery is patent. Posterior cerebral arteries appear patent and symmetric. IMPRESSION: Absent A1 segment on the right. Cerebral angio study otherwise unremarkable. CTA NECK WITH CONTRAST: Axial tomograms obtained with multiplanar reconstruction. INDICATION: Stroke protocol. FINDINGS: No evidence of stenosis seen at the origin of the arch vessels. Both common carotid arteries are patent and symmetric with no stenosis. No significant atherosclerotic disease seen in either bulb. The extracranial internal carotid arterie s are patent and symmetric with no stenosis. Vertebral arteries are patent and symmetric with no evidence of stenosis. No soft tissue abnormality identified. IMPRESSION: Unremarkable CTA neck. POS: AGW
[2020-01-21 11:13] LABS: Bilirubin Negative (Negative); Blood, Urine Negative (Negative); Clarity Clear (Clear); Glucose, Urine (Dipstick) Normal (Negative); Leukocyte Negative Leu/uL (Negative); Nitrite Negative (Negative); Protein, Urine (Dipstick) Negative (Neg-Trace); Urobilinogen Normal mg/dL (Less than 2)
[2020-01-21] MEDS ORDERED: Aspirin Chewable 81 MG TAB ONE (12:07)
[2020-01-21] MEDS ORDERED: Iopamidol 370 76% 100 ML VIAL ONE (12:43)
[2020-01-21] MEDS ORDERED: Ondansetron PF 4 MG/2 ML Vial IVP PRN (14:30)
[2020-01-21] MEDS ORDERED: Acetaminophen 325 MG TAB PO PRN ×2 (14:30→16:11)
[2020-01-21] MEDS ORDERED: Ondansetron ODT 4 MG TAB SL PRN (14:30)
--- NOTE | 2020-01-21 15:30 | MRI ---
MRI OF THE BRAIN WITHOUT CONTRAST: 01/21/20 INDICATION: History of slurred speech with left sided facial swelling and hypotension. COMPARISON: CT of the brain dated 01/21/20. FINDINGS: No area of restricted diffusion is seen to suggest presence of acute ischemia. Mild motion artifact s lightly limits image detail on examination; however, no overt signal abnormality is evident. No acute intracranial hemorrhage is demonstrated. Septum pellucidum and third ventricle are midline. A few sm all areas of periventricular T2 hyperintensity is seen within the cerebral hemispheres bilaterally wh ich are nonspecific and may reflect sequela of mild chronic small vessel white matter ischemic change . There are appropriate flow voids within the major intracranial vessels. IMPRESSION: No acute intracranial abnormality. POS: BH
[2020-01-21 15:33] VITALS: BMI 38.5
[2020-01-21] MEDS ORDERED: hydrALAZINE 20 MG/ML VIAL SLOW IVP PRN (16:03)
[2020-01-21] MEDS ORDERED: Enalaprilat Dihydrate 1.25 MG/ML VIAL SLOW IVP PRN (16:03)
[2020-01-21] MEDS ORDERED: Dextrose 5% in Water 1,000 ML IV PRN (16:06)
[2020-01-21] MEDS ORDERED: HumaLOG 300 UNITS/3 ML VIAL SC PRN ×2 (16:06)
[2020-01-21] MEDS ORDERED: Dextrose 50% Abboject 50 ML SYRINGE SLOW IVP PRN (16:06)
[2020-01-21] MEDS ORDERED: Acetaminophen 650 MG Suppository PR PRN (16:11)
--- NOTE | 2020-01-21 16:18 | PDOC.HHP ---
Hospitalist HPI - History of Present Illness Facial droop and slurred speech History of Present Illness: PCP: Dr. Colton Dave The patient is a 59/F with PMH significant for HTN, DMII, HLD, and paroxsymal afib (eliquis) that presents to the ER for above complaint. The patient reports waking with a headache, posterior, describes as mild, aching, "like tension", she reports that she gets them all the time. Denies first/worst headache, fever or neck stiffness. Denies photophobia, nausea and vomiting. While getting ready for work, she noticed some "swelling to her left eye" and some left facial droop. Denies any ingestion of new foods or changes to medications or facial products. Denies sob, wheezing. She decided to take tylenol for her headache and drive into work. In the car, she noticed she had slurred speech. Denies any dysphagia, vision changes or extremity weakness. Once she arrived at work, she discussed her symptoms with her coworkers. Her coworkers agreed that she had left facial droop and some slurring of her speech. Her boss took her blood pressure which she recalls as 120s/90s and called her PCP. Her PCP recommended that she go to the ER. Her boss then drove her to the ER. ED Course: NIH 0, GCS [address] brain, CTA head and neck no acute process CXR no acute cardiopulmonary process Labs unremarkable Given ASA 324mg Hospitalist ROS - Review of Systems Constitutional: denies: fever, chills, sweats, weakness, malaise, other Eyes: reports: other (left eye swelling). denies: pain, vision change, conjunctivae inflammation, eyelid inflammation, redness ENT: denies: ear pain, ear discharge, nose pain, nose discharge, nose congestion , mouth pain, mouth swelling, throat pain, throat swelling, other Respiratory: denies: cough, dry, shortness of breath, hemoptysis, SOB with excertion, pleuritic pain, sputum, wheezing, other Cardiovascular: denies: chest pain, palpitations, orthopnea, paroxysmal noc. dyspnea, edema, light headedness, other Gastrointestinal: denies: nausea, vomiting, abdominal pain, diarrhea, constipation, melena, hematochezia, other Genitourinary: denies: dysuria, frequency, incontinence, hematuria, retention, other Musculoskeletal: denies: neck pain, shoulder pain, arm pain, back pain, hand pain, leg pain, foot pain, other Skin: denies: rash, lesions, basil, bruising, other Neurological: reports: change in speech, other (left facial droop). denies: numbness, incoordination, confusion, seizures Hospitalist History - Past Medical History Cardiac: reports: AFIB (on eliquis), HTN, Hyperlipidemia Heme/Onc: reports: no pertinent history Hepatobiliary: reports: no pertinent history Psych: reports: no pertinent history Musculoskeletal: reports: no pertinent history Rheumatologic: reports: no pertinent history Renal/: reports: no pertinent history Endocrine: reports: Diabetes (Trulicity weekly), Other (Pre diabetic on Trulicity) Dermatology: reports: no pertinent history - Past Surgical History Past Surgical History: reports: , Hysterectomy, Other (Left ankle sx) - Family History Family History: reports: cardiac disorder (strong family history), respiratory disorder - Social History Smoking Status: Never smoker Alcohol: reports: Rare Drugs: reports: none Living Situation: With Family Occupation: lives in [place] with spouse, works at [employer] Activity level: independent ambulation - Exam General Appearance: NAD, awake alert Eye: PERRL ENT: normocephalic atraumatic, moist mucosa Neck: supple, no JVD, no thyromegaly, no lymphadenopathy Heart: RRR, no murmur, no gallops, no rubs, normal peripheral pulses Respiratory: CTAB, no wheezes, no rales, no ronchi, no tachypnea Gastrointestinal: soft, non-tender, non-distended, normal bowel sounds, no guarding, no rigidity Gastrointestinal - other findings: LBM this morning Extremities: no cyanosis, no edema Skin: no lesions, no rashes Neurological: cranial nerve grossly intact, no focal deficits Neurological - other findings: GCS 15, NIH 0 Musculoskeletal: normal tone, normal strength Psychiatric: normal affect, A&O x 3 Hospitalist Results - Labs Result Diagrams: 01/21/20 09:12 01/21/20 09:12 Lab results: WBC 8.6 thou/uL (4.8-10.8) 01/21/20 09:12 Hgb 14.2 g/dL (12.0-16.0) 01/21/20 09:12 Hct 43.3 % (36.0-47.0) 01/21/20 09:12 MCV 84.7 fL (78.0-98.0) 01/21/20 09:12 Plt Count 304 thou/uL (130-400) 01/21/20 09:12 Neutrophils % 51.6 % (42.0-75.0) 01/21/20 09:12 Sodium 139 mmol/L (136-145) 01/21/20 09:12 Potassium 4.1 mmol/L (3.5-5.1) 01/21/20 09:12 Chloride 103 mmol/L (98-107) 01/21/20 09:12 Carbon Dioxide 28 mmol/L (22-29) 01/21/20 09:12 BUN 20 mg/dL (9.8-20.1) 01/21/20 09:12 Creatinine 0.78 mg/dL (0.6-1.1) 01/21/20 09:12 Glucose 99 mg/dL (70-105) 01/21/20 09:12 Lactic Acid 1.2 mmol/L (0.5-2.2) 01/21/20 09:37 Calcium 9.6 mg/dL (7.8-10.44) 01/21/20 09:12 Total Bilirubin 0.6 mg/dL (0.2-1.2) 01/21/20 09:12 AST 16 U/L (5-34) 01/21/20 09:12 ALT 16 U/L (8-55) 01/21/20 09:12 Alkaline Phosphatase 106 U/L (40-110) 01/21/20 09:12 Creatine Kinase 42 U/L (29-168) 01/21/20 09:12 Troponin I Less than 0.010 ng/mL (< 0.028) 01/21/20 09:12 B-Natriuretic Peptide 36.3 pg/mL (0-100) 01/21/20 09:12 Serum Total Protein 7.5 g/dL (6.0-8.3) 01/21/20 09:12 Albumin 4.3 g/dL (3.5-5.0) 01/21/20 09:12 Urine Ketones Negative mg/dL (Negative) 01/21/20 11:00 Urine Blood Negative (Negative) 01/21/20 11:00 Urine Nitrite Negative (Negative) 01/21/20 11:00 Ur Leukocyte Esterase Negative Darnell/uL (Negative) 01/21/20 11:00 - EKG Interpretation EKG: NSR - Radiology Interpretation CT scan - head Status: report reviewed by me Hospitalist H&P A/P - Problem (1) Stroke-like symptom Code(s): R29.90 - UNSPECIFIED SYMPTOMS AND SIGNS INVOLVING THE NERVOUS SYSTEM Status: Acute Assessment and Plan: Admit to stroke unit, observation status Expected length of stay less than 24 hours Upon admission to ER, symptoms resolved, patient anticoagulated, likely TIA vs Complex migraine Order MRI Consult neurology Order folate and B12 Consult stroke team Hold ASA for now, restart eliquis 5mg BID (2) HTN (hypertension) Code(s): I10 - ESSENTIAL (PRIMARY) HYPERTENSION Status: Chronic Assessment and Plan: Blood pressure controlled Monitor blood pressure Restart Metoprolol succinate 50mg daily Add blood pressure medications prn HH diet (3) HLD (hyperlipidemia) Code(s): E78.5 - HYPERLIPIDEMIA, UNSPECIFIED Status: Chronic Assessment and Plan: Currently on Atorvastatin 10mg at night, will restart Last Lipid panel on 01/05/2020 chol 139 triglycerides 134 LDL 71 HDL 41 HH diet (4) DMII (diabetes mellitus, type 2) Status: Chronic Assessment and Plan: Last HA1C 6.1 on 01/04 Will add mild sliding scale Accuchecks AC/HS Restart trulicity q week home medications CC diet (5) AF (paroxysmal atrial fibrillation) Code(s): I48.0 - PAROXYSMAL ATRIAL FIBRILLATION Status: Acute Assessment and Plan: Currently NSR Continue cardiac monitoring Patient reports last echocardiogram in 11/[address] Davenport Restart flecainide 100mg BID Restart Metoprolol Succinate 50mg daily Restart Eliquis 5mg BID - Plan Plan: GI prophylaxis Recheck labs in am Full code MIGNON Cruz at [phone] Mayes
[2020-01-21] MEDS ORDERED: Atorvastatin Calcium 10 MG TAB PO SCH (21:00)
[2020-01-21] MEDS: Apixaban 5 MG TAB PO SCH (21:44)
[2020-01-21] MEDS: Famotidine 20 MG TAB PO SCH (21:48)
[2020-01-21] MEDS: Flecainide 50 MG TAB PO SCH (21:58)
[2020-01-22 06:01] LABS: #Eosinphils 0.2 thou/uL (0.0-0.7); #Monocytes 0.5 thou/uL (0.11-0.59); %Basophils 0.6 % (0.0-1.0); %Eosinophils 2.9 % (0.0-10.0); %Lymphocytes 39.1 % (21.0-51.0); %Monocytes 6.4 % (0.0-10.0); Hemoglobin 12.7 g/dL (12.0-16.0); Mean Corpuscular HGB CONC 32.8 g/dL (32.0-36.0); Mean Corpuscular Hemoglobin 27.9 pg (27.0-31.0); Mean Corpuscular Volume 85.1 fL (78.0-98.0); Mean Platelet Volume 6.9 fL (7.4-10.4); Platelet Count 250 thou/uL (130-400); RBC Distribution Width 12.8 % (11.5-14.5); Red Blood Cell (RBC) Count 4.57 mill/uL (4.20-5.40); White Blood Cell (WBC) Count 7.8 thou/uL (4.8-10.8)
[2020-01-22 06:30] LABS: Anion Gap 12 mmol/L (10-20); BUN (Urea Nitrogen) 17 mg/dL (9.8-20.1); Calc. Creatinine Clearance 169 mL/min (70-130); Calcium 8.9 mg/dL (7.8-10.44); Carbon Dioxide 26 mmol/L (22-29); Chloride 106 mmol/L (98-107); Estimated GFR-MDRD 89; Glucose 92 mg/dL (70-105); Potassium 3.6 mmol/L (3.5-5.1); Sodium 140 mmol/L (136-145)
[2020-01-22] MEDS: Apixaban 5 MG TAB PO SCH (08:46)
[2020-01-22] MEDS: Flecainide 50 MG TAB PO SCH (08:46)
[2020-01-22] MEDS: Famotidine 20 MG TAB PO SCH (08:46)
[2020-01-22] MEDS ORDERED: MECOBALAMIN PO SCH (09:00)
--- NOTE | 2020-01-22 10:46 | CON ---
DATE OF CONSULTATION: 01/22/2020 CONSULTING PHYSICIAN: Hospitalist Service. IMPRESSION: 1. Probable complex migraine. 2. History of atrial fibrillation, on anticoagulation. PLAN: The patient can be discharged home. HISTORY OF PRESENT ILLNESS: Ms. Cruz is a 59-year-old woman with a past history of atrial fibrillation, who is followed by Dr. Davenport. She got up yesterday morning and noticed that her speech was a bit slurred. She went on to work and her boss also thought that her speech was a bit slurred. She was experiencing an occipital headache as well as feeling of swelling behind the left eye. They took her blood pressure and it was unremarkable. She came into the emergency room for evaluation. She had initial CT and CT angiogram, which were both negative. Followup MRI of the brain did not reveal any evidence on ischemic event. Her symptoms lasted over 6 hours. She is feeling back to normal today. She denies history of any severe headaches in the past. She has been compliant with her Eliquis and Lipitor. PAST MEDICAL HISTORY: As listed above. ALLERGIES: NONE. SOCIAL HISTORY: No tobacco use. FAMILY HISTORY: Noncontributory. REVIEW OF SYSTEMS: Ten-system review of systems is otherwise negative. PHYSICAL EXAMINATION: VITAL SIGNS: Blood pressure 143/99, pulse 71, respirations 16, and temperature 97.9. HEENT: Pupils are equal and reactive. Conjunctivae are clear. Oropharynx clear. No facial swelling is noted. NECK: Supple. EXTREMITIES: No cyanosis or edema. NEUROLOGIC: She is alert and appropriate. Her speech is fluent and clear. Cranial nerves II through XII are intact. Motor exam did not show any focal deficits. There was no tremor or dysmetria present. Sensations intact to touch. Gait was not tested. LABORATORY STUDIES: Unremarkable CBC and serum chemistry, other than a glucose of 143. B12 was 495 and folate was 17.5. Urinalysis was clear. IMAGING STUDIES: Imaging was reviewed. SUMMARY: Given the combination of occipital and orbital headache with some vague speech difficulties lasting over 6 hours and nothing remarkable on MRI, I suspect that this was a migraine. I would continue her Eliquis and she will follow up with Dr. Davenport for possible ablation. Job ID: [id number]
[2020-01-22 11:55] VITALS: BP 124/69; TEMP 98.3
--- NOTE | 2020-01-22 13:07 | EKG ---
Test Reason : Blood Pressure : / mmHG Vent. Rate : 070 BPM Atrial Rate : 070 BPM P-R Int : 210 ms QRS Dur : 094 ms QT Int : 418 ms P-R-T Axes : 049 -17 026 degrees QTc Int : 451 ms Sinus rhythm with 1st degree A-V block Otherwise normal ECG Confirmed by CAL NICOLE DO ([id number]), online content editor RADHA CRATER ([id number]) on 01/22/2020 1:06:33 PM Referred By: Confirmed By:CAL NICOLE DO
--- NOTE | 2020-01-22 13:31 | DIS ---
DATE OF ADMISSION: 01/21/2020 DATE OF DISCHARGE: 01/22/2020 DISCHARGE DISPOSITION: Home. FOLLOWUP: 1. Follow up with primary care physician, Dr. Alfredito Alexander in 1 week. 2. Follow up with Dr. Champion in 2 weeks. ALLERGIES: NO KNOWN DRUG ALLERGIES. THE PATIENT WAS SEEN ON THE DAY OF DISCHARGE. DENIES ANY NEW COMPLAINTS. NO NEW FOCAL DEFICIT. DISCHARGE MEDICATION: Same as admission medications. DIAGNOSTIC STUDIES: Significant labs; vitamin B12 495, folic acid 17.5. Recent fasting lipid profile showed LDL of 71, HDL 41, cholesterol of 139 with triglyceride 134. Recent hemoglobin A1c was 6.1. BRIEF HOSPITAL COURSE: The patient is a 59-year-old female with paroxysmal atrial fibrillation, on anticoagulation, diabetes mellitus type 2, hypertension, and hyperlipidemia, presented to the hospital with slurriness of speech along with facial droop. Please refer to the history and physical for further details. The patient was admitted to the hospital with a diagnosis of suspected CVA. Initial CT scan of the brain was negative. CT angiogram of the head and neck was negative for hemodynamically significant stenosis. She had absent A-1 segment on the right on the cerebral angiogram. The patient was evaluated by Dr. Champion. According to Dr. Champion, the patient probably had complex migraine. MRI of the brain was negative for acute CVA. FINAL DIAGNOSES: 1. Probable complex migraine. 2. Paroxysmal atrial fibrillation, on anticoagulation. 3. Hypertension. 4. Hyperlipidemia. 5. Diabetes mellitus type 2. 6. Obesity with a BMI of 38.5. 7. Chronic kidney disease, stage 2. The patient understands the above plan of care. Job ID: [id number]
== END 2020-01-22 12:58 | disposition home or self-care (01) ==
LOC: ERS 08:55 → 2SE 12:04
PROVIDERS: ADMIT Internal Medicine; ATTEND Internal Medicine
DX: R29.810 Facial weakness (principal); R47.81 Slurred speech; I12.9 Hypertensive chronic kidney disease with stage 1 through stage 4 chronic kidney disease, or unspecified chronic kidney disease; E11.22 Type 2 diabetes mellitus with diabetic chronic kidney disease; N18.2 Chronic kidney disease, stage 2 (mild); E78.5 Hyperlipidemia, unspecified; I48.0 Paroxysmal atrial fibrillation; Z79.01 Long term (current) use of anticoagulants; Z79.82 Long term (current) use of aspirin; Z79.84 Long term (current) use of oral hypoglycemic drugs; Z79.899 Other long term (current) drug therapy
CPT/HCPCS: 36415; 36416; 70450; 70496; 70498; 70551; 71045; 80048; 80053; 81003; 82550; 82607; 82746; 83605; 83735; 83880; 84443; 84484; 85025; 85610; 85730; 93005; G0378; Q9967

== ENCOUNTER 2020-02-05 06:51 | Emergency (ER) | payer BC ==
[2020-02-05 07:36] LABS: #Basophils 0.1 thou/uL (0.0-0.2); #Eosinphils 0.2 thou/uL (0.0-0.7); #Lymphocytes 4.1 thou/uL (1.20-3.40); #Monocytes 0.4 thou/uL (0.11-0.59); #Neutrophils 3.5 thou/uL (1.40-6.50); %Basophils 0.7 % (0.0-1.0); %Eosinophils 2.7 % (0.0-10.0); %Lymphocytes 49.1 % (21.0-51.0); %Monocytes 5.3 % (0.0-10.0); %Neutrophils 42.3 % (42.0-75.0); Hemoglobin 14.6 g/dL (12.0-16.0); Mean Corpuscular HGB CONC 32.2 g/dL (32.0-36.0); Mean Corpuscular Hemoglobin 27.8 pg (27.0-31.0); Mean Corpuscular Volume 86.2 fL (78.0-98.0); Mean Platelet Volume 7.1 fL (7.4-10.4); Platelet Count 335 thou/uL (130-400); RBC Distribution Width 12.9 % (11.5-14.5); Red Blood Cell (RBC) Count 5.26 mill/uL (4.20-5.40); White Blood Cell (WBC) Count 8.3 thou/uL (4.8-10.8)
[2020-02-05 07:49] LABS: ALT (SGPT) 16 U/L (8-55); AST (SGOT) 15 U/L (5-34); Albumin 4.2 g/dL (3.5-5.0); Alkaline Phosphatase 107 U/L (40-110); Anion Gap 15 mmol/L (10-20); BUN (Urea Nitrogen) 20 mg/dL (9.8-20.1); Bilirubin, Total 0.6 mg/dL (0.2-1.2); Calc. Creatinine Clearance 0 mL/min (70-130); Calcium 9.3 mg/dL (7.8-10.44); Carbon Dioxide 25 mmol/L (22-29); Chloride 106 mmol/L (98-107); Estimated GFR-MDRD 74; Globulin 3.1 g/dL (2.4-3.5); Glucose 129 mg/dL (70-105); Potassium 3.8 mmol/L (3.5-5.1); Protein, Total 7.3 g/dL (6.0-8.3); Sodium 142 mmol/L (136-145)
--- NOTE | 2020-02-05 08:01 | RAD ---
EXAM: CHEST ONE VIEW HISTORY: Chest pain. Patient has of heart is fluttering. Shortness of breath and diaphoresis. COMPARISON: 01/21/2020 FINDINGS: The cardiac silhouette and pulmonary vasculature is within normal limits. Calcified granuloma is agai n seen in the lateral right midlung zone. Lungs are otherwise clear. The osseous structures are intact. Chest is stable compared to prior study. IMPRESSION: No acute cardiopulmonary process.
[2020-02-05] MEDS ORDERED: Propofol 500 MG/50 ML VIAL ONE (08:33)
[2020-02-05 10:00] LABS: Troponin I Less than 0.010 ng/mL (< 0.028)
--- NOTE | 2020-02-10 14:11 | EKG ---
Test Reason : Blood Pressure : / mmHG Vent. Rate : 079 BPM Atrial Rate : 079 BPM P-R Int : 210 ms QRS Dur : 094 ms QT Int : 404 ms P-R-T Axes : 020 -28 022 degrees QTc Int : 463 ms Poor data quality, interpretation may be adversely affected Sinus rhythm with 1st degree A-V block Possible Left atrial enlargement Borderline ECG Confirmed by TAWANA URIAS DO ([id number]), book editor RADHA CARTER ([id number]) on 02/10/2020 2:10:36 PM Referred By: Confirmed By:TAWANA URIAS DO
--- NOTE | 2020-02-10 14:11 | EKG ---
Test Reason : Blood Pressure : / mmHG Vent. Rate : 095 BPM Atrial Rate : 375 BPM P-R Int : 000 ms QRS Dur : 092 ms QT Int : 372 ms P-R-T Axes : 000 -28 024 degrees QTc Int : 467 ms Atrial fibrillation Abnormal ECG Confirmed by TAWANA URIAS DO ([id number]), video news editor RADHA CARTER ([id number]) on 02/10/2020 2:10:35 PM Referred By: Confirmed By:TAWANA URIAS DO
== END 2020-02-05 11:24 | disposition home or self-care (01) ==
LOC: ERS 06:51
DX: I48.91 Unspecified atrial fibrillation (principal); E78.5 Hyperlipidemia, unspecified; I10 Essential (primary) hypertension; Z79.899 Other long term (current) drug therapy
CPT/HCPCS: 36415; 71045; 80053; 84484; 85025; 92960; 93005; 96360; 96361; J2704

== ENCOUNTER 2020-02-11 13:23 | Outpatient (CLI) | payer BC, OTHER ==
[2020-02-11 14:26] LABS: Hemoglobin 14.3 g/dL (12.0-16.0); Mean Corpuscular Hemoglobin 27.8 pg (27.0-31.0); Mean Corpuscular Volume 86.9 fL (78.0-98.0); Mean Platelet Volume 6.8 fL (7.4-10.4); Platelet Count 327 thou/uL (130-400); RBC Distribution Width 12.8 % (11.5-14.5); Red Blood Cell (RBC) Count 5.15 mill/uL (4.20-5.40); White Blood Cell (WBC) Count 7.9 thou/uL (4.8-10.8)
[2020-02-11 14:32] LABS: INR-International Normal Ratio 1.1; PTT 26.4 SEC (22.9-36.1); Prothrombin Time 13.7 SEC (12.0-14.7)
[2020-02-11 14:46] LABS: Anion Gap 14 mmol/L (10-20); BUN (Urea Nitrogen) 18 mg/dL (9.8-20.1); Calc. Creatinine Clearance 0 mL/min (70-130); Calcium 9.9 mg/dL (7.8-10.44); Carbon Dioxide 27 mmol/L (22-29); Chloride 103 mmol/L (98-107); Estimated GFR-MDRD 73; Glucose 92 mg/dL (70-105); Potassium 4.2 mmol/L (3.5-5.1); Sodium 140 mmol/L (136-145)
--- NOTE | 2020-02-12 06:09 | EKG ---
Test Reason : PREOP Blood Pressure : / mmHG Vent. Rate : 080 BPM Atrial Rate : 080 BPM P-R Int : 198 ms QRS Dur : 096 ms QT Int : 418 ms P-R-T Axes : 026 -17 039 degrees QTc Int : 482 ms Normal sinus rhythm Prolonged QT Abnormal ECG When compared with ECG of 05-FEB-2020 08:57, No significant change was found Confirmed by DR. Magali BALL ([id number]) on 02/12/2020 6:08:56 AM Referred By: JP Confirmed By:DR. Magali BALL
[2020-02-12 11:26] LABS: SARS-CoV-2 MS2 Positive; SARS-CoV-2 N Gene Negative; SARS-CoV-2 S Gene Negative; SARS-CoV-2 orf1ab Negative
== END 2020-02-11 13:24 | disposition home or self-care (01) ==
LOC: LABBT 13:23
PROVIDERS: ATTEND Internal Medicine Cardiovascular Disease
DX: Z01.818 Encounter for other preprocedural examination (principal); Z11.59 Encounter for screening for other viral diseases; Z51.81 Encounter for therapeutic drug level monitoring; I48.91 Unspecified atrial fibrillation; Z79.01 Long term (current) use of anticoagulants
CPT/HCPCS: 80048; 85027; 85610; 85730; 87635; 93005; 93010; U0003

== ENCOUNTER 2020-02-15 06:45 | Observation (INO) | payer BC ==
[2020-02-11 13:36] VITALS: BMI 37.9
[2020-02-15] MEDS ORDERED: Heparin 10,000 UNITS/1 ML VIAL ONE ×2 (07:48→10:49)
[2020-02-15] MEDS ORDERED: Midazolam HCl 2 mg/2 ml Vial ONE (09:11)
[2020-02-15] MEDS ORDERED: Heparin 25,000 units/D5W 500 ML ONE (09:38)
[2020-02-15] MEDS ORDERED: PROPOFOL 200 MG/20 ML VIAL ONE (10:01)
[2020-02-15] MEDS ORDERED: PHENYLEPHRINE-NS 100 MCG/ML 10 ML SYRINGE ONE ×2 (10:01→11:29)
[2020-02-15] MEDS ORDERED: Dexamethasone 20 MG/5 ML VIAL ONE (10:01)
[2020-02-15] MEDS ORDERED: Rocuronium Bromide 10 MG/ML (10ML VIAL) ONE (10:01)
[2020-02-15] MEDS ORDERED: Lidocaine 1% PF 5 ML VIAL ONE (10:01)
[2020-02-15] MEDS ORDERED: EPHEDRINE 25 MG/5 ML SYRINGE ONE ×2 (10:01→12:24)
[2020-02-15] MEDS ORDERED: Glycopyrrolate 0.2 MG/ML 5 ML SYRINGE ONE (10:01)
[2020-02-15] MEDS ORDERED: Metoclopramide HCl 10 MG/2 ML VIAL ONE (10:01)
[2020-02-15] MEDS ORDERED: Succinylcholine Chloride 20 MG/ML 10 ml SYRINGE FS ONE (10:01)
[2020-02-15] MEDS ORDERED: Ondansetron PF 4 MG/2 ML Vial ONE (10:01)
[2020-02-15] MEDS ORDERED: Calcium Chloride 1 GM/10 ML Abboject SYRINGE ONE (10:01)
[2020-02-15] MEDS ORDERED: Isoproterenol 0.2 MG/1 ML AMP ONE (10:50)
[2020-02-15] MEDS ORDERED: Fentanyl 100 MCG/2 ML VIAL ONE (10:55)
[2020-02-15] MEDS ORDERED: Protamine Sulfate 50 MG/5 ML VIAL ONE (12:14)
[2020-02-15] MEDS ORDERED: Ondansetron HCl/PF 4 MG/2 ML Vial IVP PRN (12:52)
[2020-02-15] MEDS ORDERED: Promethazine HCl 25 MG/ML VIAL SLOW IVP PRN (12:52)
[2020-02-15] MEDS ORDERED: Promethazine HCl 25 MG/ML VIAL IM PRN (12:52)
[2020-02-15] MEDS ORDERED: Furosemide 40 MG TAB PO PRN (18:44)
[2020-02-15] MEDS ORDERED: Ketorolac Tromethamine 30 MG/ML VIAL IVP PRN (18:44)
[2020-02-15] MEDS ORDERED: Potassium Chloride 20 MEQ TAB PO PRN (18:44)
--- NOTE | 2020-02-15 18:55 | OP ---
DATE OF PROCEDURE: 02/15/2020 PROCEDURE PERFORMED: Electrophysiology study and radiofrequency ablation. REASON FOR PROCEDURE: Ms. Cruz is a 59-year-old woman with history of persistent atrial fibrillation, previously suppressed with low-dose flecainide, but now requiring multiple hospitalizations with recurrences despite. She has high symptomatic chest tightness and palpitation. She had some workup with Dr. Davenport, revealing normal LVEF and diastolic dysfunction. She has elevated BMI. She is here for pulmonary venous isolation procedure. DESCRIPTION OF PROCEDURE: The patient received general anesthesia by Anesthesia specialist. After adequate level of sedation achieved, right and left femoral vein was prepped, draped, and cannulated under ultrasound guidance. On the left side , an 11-Tanzanian sheath was used to advance the intracardiac echocardiogram probe into the right atrium, which in turn was used to monitor the transeptal procedure, catheter manipulation in the left atrium, and the pericardial space throughout the case. Also on the left side, a Preface sheath was used later to advance a duo-Deca catheter in the right atrium and CS positions. Following that, on the right side, two 8-Tanzanian short sheaths were introduced, through which a ThermoCool SFST catheter was advanced to the right atrium and 3D map of the right atrium was obtained. Following that, the right-sided short sheaths were exchanged to an SL1 sheath, which was used to perform a transseptal puncture with a help of powered Sargent needle. IV heparin was administered prior to that with bolus and drip and the ACT was checked and heparin was adjusted throughout the case to keep ACT over 350. At this point, the 3D map of the left atrium was obtained and pulmonary venous isolation was performed. Left common pulmonary vein and two right-sided pulmonary veins were seen. During the case, although patient initially was in sinus rhythm - she converted back to atrial fibrillation. Further radiofrequency ablation was delivered in the roof and the inferoposterior area, effectively isolating the posterior wall. Throughout the posterior wall burn, left atrial temperature was closely monitored to avoid excessive heating. If heating was observed, additional irrigation was delivered to cool the area. Additional lesions were placed at fractionated potentials in the inferior ans infero septal areas in the left atrium, despite of this patient remained in atrial fibrillation. Following that, the patient was cardioverted back to sinus rhythm with external shock at 300 joules. The ablation catheter was advanced to the left ventricle, and LV pacing was performed to rule out accessory pathway. Following findings were noted. At this point, the patient is in sinus rhythm. The HV interval was 52 milliseconds in the beginning of the case. AV Wenckebach at this point was 266 milliseconds and VA Wenckebach was 320 milliseconds. The AV deisy ERP was 600/220 milliseconds. Dual AV node physiology was observed. No evidence of accessory pathway was seen. Concentric retrograde VA conduction was seen to be VA pacing. The burst atrial pacing was performed on and off Isuprel and we did not re- induce any atrial arrhythmias. Isuprel was administered for 15 minutes and 20 mcg. Reconnections in the pulmonary veins were re-ablated. A total of 68 ablation lesions delivered at total duration 22 minutes and 35 seconds at 40 plata. At the end of the case, the sheaths and catheter was removed from the left side. IV heparin was stopped. The intracardiac echo probe was used to recheck the pericardial space and no effusion was seen. Also, cardiac silhouette did not change throughout the case. The IV heparin was reversed with protamine. The long sheaths were exchanged for short sheaths again and Vascade closure was performed under ultrasound guidance in all 4 femoral venous access sites. CONCLUSIONS: 1. Successful pulmonary venous and posterior wall isolation was achieved. 2. Common left Pulmonary vein is seen. 3. Additional lesions in the inferior left atrium over the coronary sinus were delivered. Also add additional lesion in the interatrial septal area were also delivered. Sinus rhythm achieved with cardioversion. 4. No evidence of accessory pathway. 5. Dual AV deisy physiology without inducible SVT. 6. Normal AV deisy and sinus deisy function seen. PLAN: Resume oral anticoagulation and monitor for recurrent atrial arrhythmias. Job ID: [id number] [facility]
[2020-02-15] MEDS: Apixaban 5 MG TAB PO SCH (20:37)
[2020-02-15] MEDS: Sucralfate 1 GM TAB PO SCH (20:37)
[2020-02-15] MEDS: Metoprolol Tartrate 50 MG TAB PO SCH (20:37)
[2020-02-15] MEDS ORDERED: Atorvastatin Calcium 10 MG TAB PO SCH (21:00)
[2020-02-16] MEDS ORDERED: Cyanocobalamin (Vitamin B-12) 1,000 MCG TAB PO SCH (09:00)
[2020-02-16] MEDS: Metoprolol Tartrate 50 MG TAB PO SCH (09:22)
[2020-02-16] MEDS: Apixaban 5 MG TAB PO SCH (09:22)
[2020-02-16] MEDS: Sucralfate 1 GM TAB PO SCH (09:22)
[2020-02-16 11:28] VITALS: BP 114/59; TEMP 98.4
--- NOTE | 2020-02-17 14:28 | DIS ---
DATE OF ADMISSION: 02/15/2020 DATE OF DISCHARGE: 02/16/2020 Dictated by Velvet Aguilera, nurse practitioner, acting as a scribe for Dr. Nuno Shi. ADMITTING AND DISCHARGING PHYSICIAN: Nuno Shi MD DIAGNOSIS: Persistent atrial fibrillation. PROCEDURES PERFORMED: Include three dimensional mapping electrophysiology study and ablation of atrial fibrillation, Vascade closure system deployed. HISTORY OF PRESENT ILLNESS: Ms. Cruz is a delightful 59-year-old female with a history of persistent atrial fibrillation, refractory to increasing doses of flecainide, resulting in multiple hospitalizations. She was appropriately anticoagulated on Eliquis 5 mg b.i.d. for at least 4-6 weeks with no missed doses. She was taken to the EP lab for an elective study and ablation on 02/15/2020. She underwent successful pulmonary venous isolation and posterior wall isolation. Of note, a common left pulmonary vein was seen. Additional lesions were placed in the inferior left atrium, coronary sinus as well as interatrial septal area. Sinus rhythm was achieved with a cardioversion. No accessory pathway was seen. Dual AV deisy physiology was seen but not inducible for SVT. Normal AV node and sinus deisy function were seen. Vascade closure devices were deployed. Total ablation time was 22 minutes 35 seconds at 40 plata. SUBJECTIVE: Ms. Cruz feels very well today. She is not having any heart racing, palpitations, chest pain, pressure, syncope, near syncope, stroke, stroke-like symptoms, urinary retention or pain with urination, bleeding at the groin sites. She is ambulating without difficulty, tolerating p.o. intake and is eager to go home. REVIEW OF SYSTEMS: Eight-point review of systems was negative except that listed above in HPI. OBJECTIVE: VITAL SIGNS: Temperature 98.4, pulse 89, blood pressure 115/59, respirations 18, and oxygen 93% on room air. GENERAL: The patient is alert and oriented. Speech is clear. She is in no apparent distress at the time of the exam. NECK: Supple without jugular venous distention. There is no lymphadenopathy. HEART: Rate is with crisp S1 and S2. PMI nondisplaced. LUNGS: Clear to auscultation bilaterally without wheezes, crackles, or rhonchi. ABDOMEN: Obese, soft, nontender without palpable masses. Hepatojugular reflux is negative. EXTREMITIES: Warm and dry to touch without clubbing, cyanosis, or edema. Bilateral groin sites are stable without bleeding nor hematoma evidence. There is a small skin tear along the right groin fold. NEUROLOGIC: Grossly intact. Nonfocal. Gait is stable. DIAGNOSTIC DATA: Telemetry and EKG showed sinus rhythm. DISCHARGE MEDICATIONS: 1. Lipitor 10 mg at bedtime. 2. B12 daily. 3. Eliquis 5 mg b.i.d. 4. Trulicity subcu weekly. 5. Toprol-XL 50 mg b.i.d., new prescription is provided. 6. Carafate 1 g q.i.d. x2 weeks. 7. Protonix 40 mg daily x30 days, p.r.n. 8. Furosemide 40 mg daily p.r.n. swelling to be taken with K-Dur 20 mEq. DISCHARGE INSTRUCTIONS: Refer to [facility] postablation discharge packet. A 2-week work excuse note was provided to the patient. If she needs an extension for this or is feeling poorly, she is free to contact our office. Will not miss any doses of her blood thinning medication, Eliquis. We will see her back in 6 weeks postablation or sooner if symptoms dictate. CONDITION AT DISCHARGE: Stable. Job ID: [id number]
--- NOTE | 2020-02-21 15:36 | EKG ---
Test Reason : POST ABLATION Blood Pressure : / mmHG Vent. Rate : 094 BPM Atrial Rate : 094 BPM P-R Int : 168 ms QRS Dur : 092 ms QT Int : 394 ms P-R-T Axes : 062 -03 065 degrees QTc Int : 492 ms Normal sinus rhythm Nonspecific T wave abnormality Prolonged QT Abnormal ECG When compared with ECG of 11-FEB-2020 14:05, Nonspecific T wave abnormality now evident in Lateral leads Confirmed by JOEY MENCHACA (2) on 02/21/2020 3:36:12 PM Referred By: JP Confirmed By:JOEY MENCHACA
[2020-02-22] MEDS ORDERED: TRULICITY SC SCH (09:00)
== END 2020-02-16 11:50 | disposition home or self-care (01) ==
LOC: CCL 06:45 → 2NO 14:28
PROVIDERS: ADMIT Internal Medicine Cardiovascular Disease; ATTEND Internal Medicine Cardiovascular Disease
PROC: 02583ZZ Destruction of Conduction Mechanism, Percutaneous Approach (ICD-10-PCS; principal; 2020-02-15)
PROC: 02K83ZZ Map Conduction Mechanism, Percutaneous Approach (ICD-10-PCS; 2020-02-15)
PROC: 4A023FZ Measurement of Cardiac Rhythm, Percutaneous Approach (ICD-10-PCS; 2020-02-15)
PROC: 4A0234Z Measurement of Cardiac Electrical Activity, Percutaneous Approach (ICD-10-PCS; 2020-02-15)
DX: I48.19 Other persistent atrial fibrillation (principal); I10 Essential (primary) hypertension; E11.9 Type 2 diabetes mellitus without complications; E78.5 Hyperlipidemia, unspecified; G43.909 Migraine, unspecified, not intractable, without status migrainosus; E66.9 Obesity, unspecified; Z68.37 Body mass index [BMI] 37.0-37.9, adult; Z79.01 Long term (current) use of anticoagulants; Z79.899 Other long term (current) drug therapy
CPT/HCPCS: 36416; 76942; 85347; 92960; 93005; 93613; 93623; 93656; 93662; C1731; C1732; C1759; C1769; G0378; J1100; J1644; J2001; J2250; J2405; J2704; J2720; J2765; J3010

== ENCOUNTER 2020-05-05 18:27 | Emergency (ER) | payer BC, OTHER ==
[2020-05-05 19:02] LABS: Bilirubin Small (Negative); Blood, Urine Large (Negative); Glucose, Urine (Dipstick) Negative (Negative); Ketone, Urine 15 mg/dL (Negative); Leukocyte Negative (Negative); Nitrite Negative (Negative); Protein, Urine (Dipstick) 100 mg/dL (Neg-Trace); pH, Urine 5.5 (5.0-9.0)
[2020-05-05 19:03] LABS: #Basophils 0.1 thou/uL (0.0-0.2); #Eosinphils 0.2 thou/uL (0.0-0.7); #Lymphocytes 3.5 thou/uL (1.20-3.40); #Monocytes 0.5 thou/uL (0.11-0.59); #Neutrophils 3.7 thou/uL (1.40-6.50); %Basophils 0.8 % (0.0-1.0); %Eosinophils 2.8 % (0.0-10.0); %Lymphocytes 43.9 % (21.0-51.0); %Monocytes 6.8 % (0.0-10.0); %Neutrophils 45.8 % (42.0-75.0); Mean Corpuscular HGB CONC 32.7 g/dL (32.0-36.0); Mean Corpuscular Hemoglobin 27.9 pg (27.0-31.0); Mean Corpuscular Volume 85.4 fL (78.0-98.0); Mean Platelet Volume 6.9 fL (7.4-10.4); Platelet Count 305 thou/uL (130-400); RBC Distribution Width 12.6 % (11.5-14.5); Red Blood Cell (RBC) Count 4.65 mill/uL (4.20-5.40)
[2020-05-05 19:04] LABS: Clarity Cloudy (Clear)
[2020-05-05 19:07] LABS: Specific Gravity, Urine 1.026 (1.002-1.036)
[2020-05-05 19:08] LABS: RBC/HPF Greater than 50 HPF (0-3)
[2020-05-05 19:09] LABS: Bacteria/HPF 1+ HPF (None Seen); Squamous Epithelial 0-3 HPF (0-3)
[2020-05-05 19:26] LABS: ALT (SGPT) 26 U/L (8-55); AST (SGOT) 21 U/L (5-34); Albumin 4.1 g/dL (3.5-5.0); Alkaline Phosphatase 110 U/L (40-110); Anion Gap 13 mmol/L (10-20); BUN (Urea Nitrogen) 18 mg/dL (9.8-20.1); Bilirubin, Total 0.4 mg/dL (0.2-1.2); Calc. Creatinine Clearance 0 mL/min (70-130); Calcium 9.3 mg/dL (7.8-10.44); Carbon Dioxide 27 mmol/L (22-29); Chloride 103 mmol/L (98-107); Estimated GFR-MDRD 61; Globulin 3.6 g/dL (2.4-3.5); Glucose 131 mg/dL (70-105); Potassium 4.3 mmol/L (3.5-5.1); Protein, Total 7.7 g/dL (6.0-8.3); Sodium 139 mmol/L (136-145)
[2020-05-05 19:29] LABS: Prothrombin Time 13.5 sec (12.0-14.7)
[2020-05-05 19:30] LABS: PTT 27.1 sec (22.9-36.1)
--- NOTE | 2020-05-05 20:37 | CT ---
CT Stone Protocol 05/05/2020 7:06 PM HISTORY: Hematuria and abdominal pain. Dysuria and urgency. COMPARISON: None. Technique: Multiple contiguous axial CT images are obtained through the abdomen and pelvis without IV contrast. Coronal reformats are provided. FINDINGS: This examination is limited for the evaluation of solid organs and vascular structures due to the lac k of intravenous contrast. Lower Chest: Minimal patchy densities are seen at each lung base which could be related to atelectasi s. Pneumonitis cannot be excluded. Abdomen: Liver: Grossly normal non-enhanced CT appearance. Gallbladder: Multiple gallbladder calculi are present. Pancreas: Grossly normal nonenhanced CT appearance. Spleen: Grossly normal nonenhanced CT appearance. Adrenals: Grossly normal nonenhanced CT appearance. Kidneys: Nonobstructing inferior pole left renal calculus measuring 9 mm x 6 mm. There is no hydronep hrosis present. No right renal calculus is identified. Ureters: A 5 mm calculus is present in the distal right ureter without evidence of hydroureter or hyd ronephrosis on the right. No left ureteral calculus is seen.. Pelvis: Urinary bladder: within normal limits. Reproductive Organs: Evidence of hysterectomy. Lymph Nodes: No enlarged lymph nodes. Bowel: Scattered colonic diverticuli. Loops of small bowel are normal in caliber. Appendix: The appendix is normal in caliber. Peritoneum: No free fluid, free air, or fluid collection. Retroperitoneum: within normal limits. Vessels: Vascular calcifications in the abdominal aorta and iliac arteries.. Abdominal Wall: Very small fat-containing right inguinal canal. Bones: Degenerative changes lower lumbar spine. Hemangioma is present in the L4 vertebral body. IMPRESSION: 1. Right distal ureteral calculus measuring 5 mm. There is no resultant hydronephrosis or hydroureter on the right. 2. Nonobstructing inferior pole left renal calculus. 3. Minimal patchy parenchymal airspace densities at each lung base which may be related to atelectasi s. Pneumonitis cannot be entirely excluded. Clinical correlation is suggested. 4. Cholelithiasis. 5. Colonic diverticulosis.
[2020-05-05] MEDS ORDERED: cefTRIAXone\\ROCEPHIN 1 GM VIAL ONE (21:11)
[2020-05-05] MEDS ORDERED: Lidocaine 1% PF 5 ML VIAL ONE (21:12)
== END 2020-05-05 21:20 | disposition home or self-care (01) ==
LOC: ERS 18:27
DX: N20.2 Calculus of kidney with calculus of ureter (principal); I10 Essential (primary) hypertension; I48.91 Unspecified atrial fibrillation; E78.5 Hyperlipidemia, unspecified; Z79.899 Other long term (current) drug therapy
CPT/HCPCS: 36415; 74176; 80053; 81003; 81015; 83690; 85025; 85610; 85730; 87086; 96372; J0696

== ENCOUNTER 2020-06-08 07:41 | Outpatient (CLI) | payer BC, OTHER | END 2020-06-08 07:42 | disposition home or self-care (01) | LOC: LABBT 07:41 | PROVIDERS: ATTEND Surgery | DX: I10 Essential (primary) hypertension (principal) | CPT/HCPCS: 36415; 80048; 80061; 80076; 82306; 82607; 82746; 83036; 83540; 83550; 84425; 84446; 84590; 84597; 85025 ==

== ENCOUNTER 2020-06-08 13:00 | Inpatient (IN) | payer BC ==
[2020-06-08 11:36] VITALS: BMI 36.1
[2020-06-13] MEDS ORDERED: Scopolamine 1.5 mg/72 hour Patch ONE ×2 (06:06→06:14)
[2020-06-13] MEDS ORDERED: cefOXitin Sodium/Dextrose 2 GM/50 ML BAG ONE (06:08)
[2020-06-13] MEDS ORDERED: Enoxaparin Sodium 40 MG/0.4 ML SYRINGE SC SCH (06:15)
[2020-06-13] MEDS ORDERED: Lidocaine 1% w/Epinephrine 1:100K 20 ML VIAL ONE (06:31)
[2020-06-13] MEDS ORDERED: Bupivacaine 0.25% HCL 30 ML VIAL ONE (06:31)
[2020-06-13] MEDS ORDERED: Fentanyl 100 MCG/2 ML VIAL ONE ×2 (06:35→09:35)
[2020-06-13] MEDS ORDERED: Lidocaine 2% Jelly 5 ML TUBE ONE (06:35)
[2020-06-13] MEDS ORDERED: Dextrose 50% Abboject 50 ML SYRINGE SLOW IVP PRN (06:38)
[2020-06-13] MEDS ORDERED: Dextrose 5% in Water 1,000 ML IV PRN (06:38)
[2020-06-13] MEDS ORDERED: Ondansetron PF 4 MG/2 ML Vial IVP PRN (06:38)
[2020-06-13] MEDS ORDERED: diphenhydrAMINE 50 MG/ML VIAL IVP PRN (06:38)
[2020-06-13] MEDS ORDERED: Morphine 2 MG/ML VIAL SLOW IVP PRN (06:38)
[2020-06-13] MEDS ORDERED: Promethazine HCl 25 MG/ML VIAL IM PRN ×2 (06:38→09:19)
[2020-06-13] MEDS ORDERED: hydrALAZINE 20 MG/ML VIAL ONE (09:18)
[2020-06-13] MEDS ORDERED: Promethazine HCl 25 MG/ML VIAL SLOW IVP PRN (09:19)
[2020-06-13] MEDS ORDERED: Ondansetron HCl/PF 4 MG/2 ML Vial IVP PRN (09:19)
--- NOTE | 2020-06-13 10:08 | PDOC.OP ---
Operative Note - Operative Note Operative Note: DATE OF SURGERY: June 13, 2020 SURGEON: Jamel Clarke MD PREOPERATIVE DIAGNOSIS: Morbid Obesity Hypertension Diabetes mellitus Hyperlipidemia POSTOPERATIVE DIAGNOSIS: Morbid Obesity Hypertension Diabetes mellitus Hyperlipidemia PROCEDURE: Sleeve Gastrectomy INDICATIONS: 89-year-old female with morbid obesity and the comorbities of morbid obesity, who has been evaluated for surgical weight loss. She completed her preoperative work-up, and wishes to undergo sleeve gastrectomy. The relative risks and benefits of this procedure were discussed in detail with the patient, specifically addressing the risk of new onset gastroesophageal reflux disease, staple line leak, stenosis, and the need for additional procedures. Informed consent was obtained. PROCEDURE IN DETAIL: The patient was brought to the operating room, and positioned supine on the operating room table. After induction of general, endotracheal anesthesia, the patient was prepared and draped in the usual fashion. Prior to beginning the procedure, a complete timeout was performed with all members of the operative team being present and in agreement. Access to the abdomen was obtained in the right upper quadrant using an optical trocar under direct visualization. The abdomen was insufflated, and additional trochars placed under direct visualization. A Bakari retractor was placed in the subxiphoid position and the left lobe of the liver elevated. The gastrocolic ligament was divided along the greater curvature using a vessel sealing device. All posterior attachments to the stomach were divided in a similar fashion, until the stomach was completely mobilized and the left syed was well visualized. The epicardial fat pad was dissected to visualize the angle of His clearly. A 36 Burkinan calibration tube was placed to the pylorus. A vertical sleeve gastrectomy was performed using sequential firings of a 60 mm staple load, beginning 4-5cm from the pylorus. The staple line was examined and hemostasis achieved with interrupted Vicryl sutures as needed. The calibration tube was removed, and the sleeve examined. It was found to lie flat with a straight staple line to the angle of His. The specimen was removed through the 12 mm trocar site, and the trocar site was closed using a 0 Vicryl tie and a suture passer. The skin was closed with 4-0 Monocryl and dressed with skin adhesive dressing. At the conclusion of the case, all sponge and instrument counts were correct. ESTIMATED BLOOD LOSS: Minimal COMPLICATIONS: None INTRAOPERATIVE BLOOD TRANSFUSIONS: None GRAFTS / IMPLANTS: None SPECIMENS: Remnant stomach DISPOSITION: The patient was transported to the postoperative recovery unit in good condition , to be floor when criteria met.
[2020-06-13] MEDS ORDERED: EPHEDRINE 25 MG/5 ML SYRINGE ONE (11:44)
[2020-06-13] MEDS ORDERED: Ondansetron PF 4 MG/2 ML Vial ONE (11:44)
[2020-06-13] MEDS ORDERED: Ketorolac Tromethamine 30 MG/ML VIAL ONE (11:44)
[2020-06-13] MEDS ORDERED: Glycopyrrolate 0.2 MG/ML 5 ML SYRINGE ONE (11:44)
[2020-06-13] MEDS ORDERED: Rocuronium Bromide 10 MG/ML (10ML VIAL) ONE (11:44)
[2020-06-13] MEDS ORDERED: PHENYLEPHRINE-NS 100 MCG/ML 10 ML SYRINGE ONE (11:44)
[2020-06-13] MEDS ORDERED: PROPOFOL 200 MG/20 ML VIAL ONE (11:44)
[2020-06-13] MEDS ORDERED: Dexamethasone 20 MG/5 ML VIAL ONE (11:44)
[2020-06-13] MEDS ORDERED: Lidocaine 1% PF 5 ML VIAL ONE (11:44)
[2020-06-13] MEDS ORDERED: Ketorolac Tromethamine 30 MG/ML VIAL IVP SCH (12:00)
[2020-06-13] MEDS: Ketorolac Tromethamine 30 MG/ML VIAL IVP SCH ×2 (14:07→20:11)
[2020-06-13] MEDS: Pantoprazole 40 MG VIAL IVP SCH (14:08)
[2020-06-13] MEDS: 1/2 NS w/KCL 20 mEq 1,000 ML IV SCH ×2 (14:20→17:32)
[2020-06-13] MEDS: Hydrocodone-Acetamin 15 ML UDCUP PO PRN (17:33)
[2020-06-14] MEDS: 1/2 NS w/KCL 20 mEq 1,000 ML IV SCH ×2 (00:34→06:32)
[2020-06-14] MEDS: Ketorolac Tromethamine 30 MG/ML VIAL IVP SCH ×2 (03:51→08:44)
[2020-06-14] MEDS: Hydrocodone-Acetamin 15 ML UDCUP PO PRN (03:52)
[2020-06-14 05:13] LABS: #Lymphocytes 2.5 thou/uL (1.20-3.40); #Monocytes 0.7 thou/uL (0.11-0.59); %Basophils 0.2 % (0.0-1.0); %Lymphocytes 20.7 % (21.0-51.0); %Monocytes 5.4 % (0.0-10.0); %Neutrophils 73.7 % (42.0-75.0); Hemoglobin 11.9 g/dL (12.0-16.0); Mean Corpuscular HGB CONC 32.3 g/dL (32.0-36.0); Mean Corpuscular Hemoglobin 27.7 pg (27.0-31.0); Mean Corpuscular Volume 85.9 fL (78.0-98.0); Mean Platelet Volume 7.2 fL (7.4-10.4); Platelet Count 276 thou/uL (130-400); RBC Distribution Width 12.9 % (11.5-14.5); Red Blood Cell (RBC) Count 4.31 mill/uL (4.20-5.40); White Blood Cell (WBC) Count 12.3 thou/uL (4.8-10.8)
[2020-06-14 05:32] LABS: Anion Gap 13 mmol/L (10-20); BUN (Urea Nitrogen) 10 mg/dL (9.8-20.1); Calc. Creatinine Clearance 152 mL/min (70-130); Calcium 8.3 mg/dL (7.8-10.44); Carbon Dioxide 22 mmol/L (22-29); Chloride 104 mmol/L (98-107); Estimated GFR-MDRD 85; Glucose 110 mg/dL (70-105); Potassium 4.2 mmol/L (3.5-5.1); Sodium 135 mmol/L (136-145)
[2020-06-14 07:54] VITALS: BP 98/63; TEMP 97.6
[2020-06-14] MEDS: Pantoprazole 40 MG VIAL IVP SCH (08:45)
[2020-06-14] MEDS ORDERED: Enoxaparin Sodium 40 MG/0.4 ML SYRINGE SC SCH (09:00)
--- NOTE | 2020-06-14 09:45 | PDOC.BPN ---
- Brief Progress Note DATE OF ADMISSION: June 13, 2020 DATE OF DISCHARGE: June 14, 2000 ADMISSION DIAGNOSES: Morbid obesity Hypertension Diabetes Hyperlipidemia DISCHARGE DIAGNOSES: Morbid obesity Hypertension Diabetes Hyperlipidemia PROCEDURES: Laparoscopic sleeve gastrectomy HOSPITAL COURSE: The patient presented on June 13, 2000 for laparoscopic sleeve gastrectomy. They tolerated the procedure well, and were transferred to the floor. On the floor, bariatric clear liquid diet was initiated 4 hours postoperatively. The patient was also encouraged to walk 4 hours postoperatively and four times daily thereafter. Chemoprophylaxis for deep vein thrombosis was initiated preoperatively and continued through their postoperative hospitalization in addition to EBEN hose, SCD, and early ambulation. Strict oral intake of clear liquids were recorded to ensure adequate self hydration prior to discharge. Antiemetics were administered as needed as needed for nausea. On POD 1, their pain was well-controlled with oral analgesia only, they were ambulating independently and voiding spontaneously. They had demonstrated adequate oral intake to ensure self hydration and they were appropriate for discharge. CONSULTS: Nutrition DISCHARGE MEDICATIONS: see Discharge Medication Reconciliation EXAMINATION: General: alert and oreinted, no acute distress, resting comfortably Cardiovascular: regular rate and rhythm Pulmonary: normal respirations, good tidal volume Abdomen: soft, non-tender, non-distended, incisions clean and intact Extremities: no edema, palpable pulses DISCHARGE INSTRUCTIONS: 1. Continue bariatric diet as instructed. See guidebook for questions. 2. Advance activity as tolerated. Avoid heavy lifting and straining until after postoperative clinic evaluation. Ambulate daily. 3. Take medications as instructed. 4. Follow-up 1 weeks. Contact surgery clinic for appointment. 5. Do not remove Dermabond. Wash normally. It will come off on its own. 6. Consider [id number] stool softener or laxative while taking narcotic pain medication. 7. Contact the surgery clinic ([phone]) or report to the emergency department for persistent fevers, increasing pain, persistent nausea or vomiting.
== END 2020-06-14 11:00 | disposition home or self-care (01) | DRG 620 ==
LOC: SURG A 06-13 05:45 → SURG B 06-13 10:37
PROVIDERS: ADMIT Surgery; ATTEND Surgery
PROC: 0DB64Z3 Excision of Stomach, Percutaneous Endoscopic Approach, Vertical (ICD-10-PCS; principal; 2020-06-13)
DX: E66.01 Morbid (severe) obesity due to excess calories (principal); I48.20 Chronic atrial fibrillation, unspecified; A04.8 Other specified bacterial intestinal infections; I10 Essential (primary) hypertension; E78.2 Mixed hyperlipidemia; G47.33 Obstructive sleep apnea (adult) (pediatric); E11.9 Type 2 diabetes mellitus without complications; D58.2 Other hemoglobinopathies; Z90.710 Acquired absence of both cervix and uterus; Z68.36 Body mass index [BMI] 36.0-36.9, adult
CPT/HCPCS: 36415; 36416; 80048; 85025; 88307; 88312; C9113; J0360; J0694; J1100; J1650; J1885; J2405; J2704; J3010; J3480; S0020

== ENCOUNTER 2022-05-31 07:52 | Outpatient (CLI) | payer BC ==
[2022-05-31] MEDS ORDERED: Iopamidol-370 76% 500 ML 1 ML ONE (11:45)
== END 2022-05-31 07:53 | disposition home or self-care (01) ==
LOC: BICCT 07:52
PROVIDERS: ATTEND Physician Assistant Medical
DX: K92.1 Melena (principal); K64.8 Other hemorrhoids; R10.30 Lower abdominal pain, unspecified
CPT/HCPCS: 74177; Q9967

== ENCOUNTER 2022-06-13 10:31 | Outpatient (CLI) | payer BC | END 2022-06-13 10:32 | disposition home or self-care (01) | LOC: BICMAMMO 10:31 | PROVIDERS: ATTEND Nurse Practitioner Family | DX: Z12.31 Encounter for screening mammogram for malignant neoplasm of breast (principal) | CPT/HCPCS: 77063; 77067 ==

== ENCOUNTER 2024-10-28 13:38 | Outpatient (CLI) | payer OTHER | END 2024-10-28 13:39 | disposition home or self-care (01) | LOC: BICRAD 13:38 | DX: M25.572 Pain in left ankle and joints of left foot (principal); M79.89 Other specified soft tissue disorders; Z98.890 Other specified postprocedural states ==

== ENCOUNTER 2025-08-31 07:47 | Outpatient (CLI) | payer SELFPAY ==
[2025-08-31 08:25] LABS: #Basophils 0.05 10x3/uL (0.0-0.2); #Eosinophils 0.14 10x3/uL (0.0-0.7); #Monocytes 0.38 10x3/uL (0.11-0.59); #Neutrophils 1.56 10x3/uL (1.40-6.50); %Basophils 1.1 % (0.0-1.0); %Eosinophils 3.2 % (0.0-10.0); %Lymphocytes 51.8 % (21.0-51.0); %Monocytes 8.6 % (0.0-10.0); %Neutrophils 35.3 % (42.0-75.0); Hematocrit 40.5 % (36.0-47.0); Hemoglobin 12.8 g/dL (12.0-16.0); Mean Corpuscular Hemoglobin 28.0 pg (27.0-31.0); Mean Corpuscular Volume 88.6 fL (78.0-98.0); Platelet Count 199 10x3/uL (130-400); Red Blood Cell (RBC) Count 4.57 mill/uL (4.20-5.40); White Blood Cell (WBC) Count 4.42 10x3/uL (4.8-10.8)
[2025-08-31 08:35] LABS: Anion Gap 15 mmol/L (10-20); BUN (Urea Nitrogen) 16 mg/dL (9.8-20.1); Calc. Creatinine Clearance 0 mL/min (70-130); Calcium 9.2 mg/dL (7.8-10.44); Carbon Dioxide 25 mmol/L (23-31); Chloride 104 mmol/L (98-107); Glucose 107 mg/dL (80-115); Potassium 3.9 mmol/L (3.5-5.1); Sodium 140 mmol/L (136-145)
== END 2025-08-31 07:48 | disposition home or self-care (01) ==
LOC: LABBT 07:47
PROVIDERS: ATTEND Orthopaedic Surgery Hand Surgery
DX: Z01.818 Encounter for other preprocedural examination (principal); M65.331 Trigger finger, right middle finger; M65.341 Trigger finger, right ring finger; M65.332 Trigger finger, left middle finger
CPT/HCPCS: 80048; 85025; 93005; 93010

== ENCOUNTER 2025-09-07 05:45 | Day surgery (SDC) | payer OTHER, SELFPAY ==
[2025-08-31 08:15] VITALS: BMI 25.1
[2025-09-07] MEDS ORDERED: Ondansetron PF 4 MG/2 ML Vial ONE (06:47)
[2025-09-07] MEDS ORDERED: Lidocaine 1% PF 5 ML VIAL ONE (06:47)
[2025-09-07] MEDS ORDERED: Rocuronium Bromide 10 MG/ML (10ML VIAL) ONE (06:47)
[2025-09-07] MEDS ORDERED: Bacitracin Zinc Ointment 30 gm TUBE ONE (06:48)
[2025-09-07] MEDS ORDERED: fentaNYL PF 100 MCG/2 ML SYRINGE ONE (06:48)
[2025-09-07] MEDS ORDERED: PROPOFOL 200 MG/20 ML VIAL ONE (07:12)
[2025-09-07] MEDS ORDERED: hydrALAZINE 20 MG/ML VIAL ONE (09:03)
== END 2025-09-07 10:24 | disposition home or self-care (01) ==
LOC: SDC 05:45
PROVIDERS: ATTEND Orthopaedic Surgery Hand Surgery
DX: M65.331 Trigger finger, right middle finger (principal); M65.341 Trigger finger, right ring finger; M65.332 Trigger finger, left middle finger; M65.941 Unspecified synovitis and tenosynovitis, right hand; M67.441 Ganglion, right hand; M18.0 Bilateral primary osteoarthritis of first carpometacarpal joints; I10 Essential (primary) hypertension; E11.9 Type 2 diabetes mellitus without complications; E78.5 Hyperlipidemia, unspecified; E66.812 Obesity, class 2; Z68.25 Body mass index [BMI] 25.0-25.9, adult; Z98.84 Bariatric surgery status; Z90.710 Acquired absence of both cervix and uterus; Z98.890 Other specified postprocedural states; Z79.82 Long term (current) use of aspirin; Z79.899 Other long term (current) drug therapy
CPT/HCPCS: 88305; A6223; J0360; J1100; J2250; J2405; J2704